=== PATIENT | male | born 1950 | race Caucasian/White ===

== ENCOUNTER → 2018-07-27 12:27 | Outpatient (CLI) | payer MEDICARE, OTHER, SELFPAY ==
--- NOTE | 2018-07-27 12:35 | DI.RAD.S_ITS ---
PROCEDURE: XR TIBIA FIBULA RT 2V INDICATIONS: leg pain TECHNIQUE: 2 views of the tibia and fibula were acquired. COMPARISON: None. FINDINGS: Bones: No fractures or dislocations. No suspicious bony lesions. Mild spurring of the right knee joint Soft tissues: No suspicious soft tissue calcifications or masses. IMPRESSION: Negative exam as above. If the patient's pain or other symptoms persist, consider further evaluation with MRI Dictated by: Stanley Wolff M.D. on 07/27/2018 at 13:15 Approved by: Stanley Wolff M.D. on 07/27/2018 at 13:29
== END ==
PROVIDERS: Visit Provider Physician Assistant
DX: M79.662 Pain in left lower leg (principal)
CPT/HCPCS: 73590

== ENCOUNTER 2020-05-14 14:56 | Observation (INO) | payer MEDICARE, OTHER, SELFPAY ==
[2020-05-14 15:00] VITALS: BP 176/101; PULSE 104; RESP 16; TEMP 36.3; O2SAT 97; BMI 29.7
--- NOTE | 2020-05-14 15:23 | DI.RAD.S_ITS ---
PROCEDURE: XR CHEST 1V INDICATIONS: chest pain TECHNIQUE: One view of the chest was acquired. COMPARISON: None. FINDINGS: Surgical changes and devices: Surgical clips are noted in right axilla.. Lungs and pleura: Lungs are clear. No pleural effusions or pneumothorax. Mediastinum: Mildly tortuous thoracic aorta is seen. Heart size is borderline enlarged. Bones and chest wall: No suspicious bony lesions. Overlying soft tissues appear unremarkable. IMPRESSION: No acute cardiopulmonary pathology. Dictated by: Tu Guidry M.D. on 05/14/2020 at 15:05 Approved by: Tu Guidry M.D. on 05/14/2020 at 15:10
[2020-05-14 16:04] LABS: Add Manual Diff / Slide Review NO; Basophils Absolute Auto 0 /uL (0-100); Basophils Percent Auto 0.5 % (0-2); Eosinophils Absolute Auto 0 /uL (0-450); Eosinophils Percent Auto 0.5 % (2-4); Hematocrit 39.1 % (41-53); Hemoglobin 12.8 g/dL (13.5-17.5); Lymphocytes Absolute Auto 1800 /uL (1100-4500); Lymphocytes Percent Auto 25.5 % (25-40); Mean Corpuscular HGB Conc 32.8 % (30-36); Mean Corpuscular Hemoglobin 29.8 PG (26-34); Mean Corpuscular Volume 90.9 fL (80-100); Monocytes Absolute Auto 300 /uL (0-900); Monocytes Percent Auto 4.4 % (3-14); Neutrophils Absolute Auto 4800 /uL (1500-7000); Neutrophils Percent Auto 69.1 % (50-75); Platelet Count 229 X10^3/uL (150-400); Red Cell Distribution Width 14.2 % (11.6-14.8)
[2020-05-14 16:05] VITALS: BP 176/101; PULSE 79; RESP 16; O2SAT 100
[2020-05-14 16:18] LABS: INR 0.9 (0.9-1.3); Prothrombin Time 10.7 SECONDS (10.1-12.7)
[2020-05-14 16:21] LABS: PTT Partial Thromboplastin Tim 30 SECONDS (26.4-36.2)
[2020-05-14 16:24] LABS: Alanine Aminotransferase 23 IU/L (<50); Albumin 4.2 g/dL (3.5-5.0); Albumin Globulin Ratio 1.6 (1.0-2.8); Alkaline Phosphatase 83 U/L (38-126); Aspartate Aminotransferase 25 IU/L (17-59); BUN Creatinine Ratio 27.3 (6-22); Bilirubin Total 0.2 mg/dL (0.2-1.3); Blood Urea Nitrogen 27 mg/dL (9-20); Calcium 9.1 mg/dL (8.4-10.2); Carbon Dioxide 25 mmol/L (22-32); Chloride 104 mmol/L (98-107); Creatine Kinase 70 U/L (55-170); Estimated Glomerular Filt Rate > 60.0 mL/min (>60); Globulin 2.6 g/dL (1.7-4.1); Glucose 141 mg/dL (80-110); HEMOLYSIS < 15 (0-50); Lipase 90 U/L (23-300); Potassium 4.4 mmol/L (3.4-5.1); Sodium 135 mmol/L (137-145); Total Protein 6.8 g/dL (6.3-8.2)
[2020-05-14 16:35] LABS: Troponin I < 0.012 ng/mL (0.01-0.034)
[2020-05-14 17:14] LABS: D Dimer < 200 ng/mL (<230)
--- NOTE | 2020-05-14 17:15 | ED_ITS ---
HPI - Chest Pain <ROSA Sorensen-BC - Last Filed: 05/14/20 19:37> General Chief Complaint: Chest Pain Stated Complaint: SOB PAIN LEFT ARM Time Seen by Provider: 05/14/20 16:58 Source: patient Mode of arrival: Ambulatory Limitations: no limitations History of Present Illness HPI narrative: The patient is a 69-year-old female nonsmoker who denies pertinent medical history presents with a chief complaint of chest pain that started a substernal this morning at 10:30 a.m.. Radiated to her back and down her left arm. She has never felt this way before. She denies any cardiac history, though notes that she was told she had high blood pressure when going to a walk-in clinic for urinary tract infection treatment fairly recently. She denies any family history of cardiac disease. She complains of associated lightheadedness and dizziness, associated nausea during her episode of chest pain with no vomiting. She states that her episode of chest pain lasted 3 hours or so. She denies any fevers. She denies any known exposure to coronavirus patients. Related Data Previous Rx's Medication Instructions Recorded atorvastatin 20 mg PO BEDTIME 30 Days #30 tab 05/15/20 hydrochlorothiazide 25 mg PO DAILY 30 Days #30 tab 05/15/20 lisinopril 20 mg PO DAILY 30 Days #30 tab 05/15/20 Allergies Allergy/AdvReac Type Severity Reaction Status Date / Time No Known Drug Allergies Allergy Verified 07/27/18 12:05 Review of Systems <ROSA Sorensen- - Last Filed: 05/14/20 19:37> Review of Systems Narrative: GENERAL: Denies chills, fatigue, malaise, fever, sweats. HEENT: Denies sinus pain, ear pain, sore throat, difficulty swallowing, dizziness. RESPIRATORY: See HPI CARDIOVASCULAR: See HPI GASTROINTESTINAL: Denies nausea, vomiting, abdominal pain, diarrhea, constipation, melena. : Denies dysuria, frequency, incontinence, hematuria, urinary retention. MUSCULOSKELETAL: denies weakness, joint pain, or bony pain SKIN: Denies rash, skin lesions, or other NEUROLOGIC: Denies weakness, headache, numbness, change in speech, confusion, seizures, incoordination. PSYCHIATRIC: No concerning psychosocial issues. 12 point review of systems is negative except for those stated above Patient History <ROSA Sorensen-BC - Last Filed: 05/14/20 19:37> Medical History (Updated 05/14/20 @ 21:34 by LOR Toscano) History of chemotherapy Stage III breast cancer in female Surgical History (Updated 05/14/20 @ 21:34 by LOR Toscano) History of appendectomy History of hysterectomy History of lumbosacral spine surgery History of mastectomy History of tonsillectomy History of vascular access device Family History (Updated 05/14/20 @ 21:36 by LOR Toscaon) Father Congestive heart failure Mother Cancer Brother Myocardial infarction Social History household members: spouse Smoking Status: Never smoker alcohol intake: current Smoking Status: Never smoker Exam <CHAVEZ Sorensen - Last Filed: 05/14/20 19:37> Narrative Exam Narrative: GENERAL: This is a well-nourished, well-developed patient, in no acute distress HEAD: Atraumatic. Normocephalic. No temporal or scalp tenderness. EYES: Pupils equal round and reactive. Extraocular motions intact. No scleral icterus. No injection or drainage. ENT: Nose without bleeding, purulent drainage or septal hematoma. Wearing a mass e. Airway patent. NECK: Trachea midline. No JVD or lymphadenopathy. Supple, nontender, no meningeal signs. CARDIOVASCULAR: Regular rate and rhythm RESPIRATORY: Clear to auscultation. Breath sounds equal bilaterally. No wheezes, rales, or rhonchi. No cough. No increased respiratory effort. No accessory muscle use. GASTROINTESTINAL: Abdomen soft, non-tender, nondistended. No hepato- splenomegaly, or palpable masses. No guarding. Active bowel sounds all 4 quadrants. EXTREMITIES: No clubbing, cyanosis, or edema. No joint tenderness, effusion, or edema noted. BACK: Nontender without deformity or crepitance. No flank tenderness. NEURO: AOx3. SKIN: No rash or erythema on visible skin Initial Vital Signs Initial Vital Signs: Vital Signs Temperature 97.4 F L 05/14/20 15:00 Pulse Rate 104 H 05/14/20 15:00 Respiratory Rate 16 05/14/20 15:00 Blood Pressure 176/101 H 05/14/20 15:00 Pulse Oximetry 97 05/14/20 15:00 <Cat Matthews DO - Last Filed: 05/17/20 10:09> Initial Vital Signs Initial Vital Signs: Vital Signs Temperature 97.4 F L 05/14/20 15:00 Pulse Rate 104 H 05/14/20 15:00 Respiratory Rate 16 05/14/20 15:00 Blood Pressure 176/101 H 05/14/20 15:00 Pulse Oximetry 97 05/14/20 15:00 Scores <CHAVEZ Sorensen - Last Filed: 05/14/20 19:37> GCS [place] coma scale eye opening: Spontaneous [place] coma scale verbal response: Orientated [place] coma scale motor response: Obey commands [place] coma scale total score: 15 HEART Score Heart Score history: Highly Suspicious Heart Score EKG: Non-Specific repolarization disturbance Heart Score Age: > or = 65 years old Heart Score risk factors: 1-2 risk factors Heart Score troponin: < or = to normal limit Heart Score Total: 6 Course <CHAVEZ Sorensen - Last Filed: 05/14/20 19:37> Orders Ordered: Discontinued Medications Acetaminophen (Acetaminophen 325 Mg Tablet) 650 mg PO Q4HR PRN PRN Reason: Fever/Mild Pain (1-3) Last Admin: 05/15/20 16:20 Dose: 650 mg Documented by: FRANCI Al Hydrox/Mg Hydrox/Simethicone (Mag Hydrox/Alum/Simeth 30 Ml Udc) 30 ml PO Q6HR PRN PRN Reason: Dyspepsia Amlodipine Besylate (Amlodipine 5 Mg Tablet) 5 mg PO NOW ONE Stop: 05/15/20 09:15 Last Admin: 05/15/20 09:21 Dose: 5 mg Documented by: ROBERT Aspirin (Aspirin Ec 81 Mg Tablet) 81 mg PO DAILY [facility] Last Admin: 05/15/20 09:21 Dose: 81 mg Documented by: ROBERT Bisacodyl (Bisacodyl 10 Mg Supp) 10 mg RI DAILY PRN PRN Reason: Constipation Calcium Carbonate (Calcium Carbonate 500 Mg Tab) 1,000 mg PO Q4HR PRN PRN Reason: Dyspepsia Enalapril Maleate (Enalapril 5 Mg Tablet) 5 mg PO NOW ONE Stop: 05/15/20 10:45 Last Admin: 05/15/20 11:15 Dose: 5 mg Documented by: ROBERT Furosemide (Furosemide 20 Mg/2 Ml Vial) 20 mg IV NOW ONE Stop: 05/15/20 14:54 Last Admin: 05/15/20 14:56 Dose: 20 mg Documented by: ROBERT Heparin Sodium (Porcine) (Heparin 5,000 Unit/Ml Vial) 5,000 unit SUBCUT BID [facility] Last Admin: 05/15/20 09:21 Dose: 5,000 unit Documented by: Admin: 05/14/20 21:31 Dose: 5,000 unit Documented by: ESTELLA Sodium Chloride (Normal Saline 0.9%) 1,000 mls @ 75 mls/hr IV CONT [facility] Last Infusion: 05/15/20 14:41 Dose: 75 mls/hr Documented by: Admin: 05/14/20 21:31 Dose: 75 mls/hr Documented by: ESTELLA Influenza Virus Vaccine (Influenza Hd Vaccine 0.7 Ml Syringe) 0.7 ml IM .ONCE ONE Stop: 05/14/20 21:08 Last Admin: 05/15/20 14:38 Dose: Not Given Documented by: ROBERT Influenza Virus Vaccine (Influenza Hd Vaccine 0.7 Ml Syringe) 0.7 ml IM .ONCE ONE Stop: 05/15/20 14:40 Last Admin: 05/15/20 14:45 Dose: 0.7 ml Documented by: ROBERT Magnesium Hydroxide (Magnesium Hydroxide 30 Ml Udc) 30 ml PO DAILY PRN PRN Reason: Constipation Morphine Sulfate (Morphine 2 Mg/Ml Inj) 2 mg IV Q5MIN PRN PRN Reason: Chest Pain Naloxone HCl (Naloxone 0.4 Mg/Ml Vial) 0.2 mg IV Q2MIN PRN PRN Reason: Opiate Reversal Nitroglycerin (Nitroglycerin 0.4 Mg Sl Tab) 0.4 mg SL [id number] PRN PRN Reason: Chest Pain Ondansetron HCl (Ondansetron 4 Mg/2 Ml Inj) 4 mg IV Q8HR PRN PRN Reason: Nausea And Vomiting Vital Signs Vital signs: Vital Signs - 8 hr 05/14/20 15:00 05/14/20 16:05 05/14/20 17:34 Temperature 97.4 F L Pulse Rate 104 H 79 84 Respiratory Rate 16 16 22 Blood Pressure 176/101 H 176/101 H 141/75 H Pulse Oximetry 97 100 100 05/14/20 18:30 Temperature Pulse Rate 81 Respiratory Rate 16 Blood Pressure 170/84 H Pulse Oximetry 96 <Cat Matthews, - Last Filed: 05/17/20 10:09> Orders Ordered: Discontinued Medications Acetaminophen (Acetaminophen 325 Mg Tablet) 650 mg PO Q4HR PRN PRN Reason: Fever/Mild Pain (1-3) Last Admin: 05/15/20 16:20 Dose: 650 mg Documented by: FRANCI Al Hydrox/Mg Hydrox/Simethicone (Mag Hydrox/Alum/Simeth 30 Ml Udc) 30 ml PO Q6HR PRN PRN Reason: Dyspepsia Amlodipine Besylate (Amlodipine 5 Mg Tablet) 5 mg PO NOW ONE Stop: 05/15/20 09:15 Last Admin: 05/15/20 09:21 Dose: 5 mg Documented by: ROBERT Aspirin (Aspirin Ec 81 Mg Tablet) 81 mg PO DAILY [facility] Last Admin: 05/15/20 09:21 Dose: 81 mg Documented by: ROBERT Bisacodyl (Bisacodyl 10 Mg Supp) 10 mg RI DAILY PRN PRN Reason: Constipation Calcium Carbonate (Calcium Carbonate 500 Mg Tab) 1,000 mg PO Q4HR PRN PRN Reason: Dyspepsia Enalapril Maleate (Enalapril 5 Mg Tablet) 5 mg PO NOW ONE Stop: 05/15/20 10:45 Last Admin: 05/15/20 11:15 Dose: 5 mg Documented by: ROBERT Furosemide (Furosemide 20 Mg/2 Ml Vial) 20 mg IV NOW ONE Stop: 05/15/20 14:54 Last Admin: 05/15/20 14:56 Dose: 20 mg Documented by: ROBERT Heparin Sodium (Porcine) (Heparin 5,000 Unit/Ml Vial) 5,000 unit SUBCUT BID [facility] Last Admin: 05/15/20 09:21 Dose: 5,000 unit Documented by: Admin: 05/14/20 21:31 Dose: 5,000 unit Documented by: ESTELLA Sodium Chloride (Normal Saline 0.9%) 1,000 mls @ 75 mls/hr IV CONT [facility] Last Infusion: 05/15/20 14:41 Dose: 75 mls/hr Documented by: Admin: 05/14/20 21:31 Dose: 75 mls/hr Documented by: ESTELLA Influenza Virus Vaccine (Influenza Hd Vaccine 0.7 Ml Syringe) 0.7 ml IM .ONCE ONE Stop: 05/14/20 21:08 Last Admin: 05/15/20 14:38 Dose: Not Given Documented by: ROBERT Influenza Virus Vaccine (Influenza Hd Vaccine 0.7 Ml Syringe) 0.7 ml IM .ONCE ONE Stop: 05/15/20 14:40 Last Admin: 05/15/20 14:45 Dose: 0.7 ml Documented by: ROBERT Magnesium Hydroxide (Magnesium Hydroxide 30 Ml Udc) 30 ml PO DAILY PRN PRN Reason: Constipation Morphine Sulfate (Morphine 2 Mg/Ml Inj) 2 mg IV Q5MIN PRN PRN Reason: Chest Pain Naloxone HCl (Naloxone 0.4 Mg/Ml Vial) 0.2 mg IV Q2MIN PRN PRN Reason: Opiate Reversal Nitroglycerin (Nitroglycerin 0.4 Mg Sl Tab) 0.4 mg SL [id number] PRN PRN Reason: Chest Pain Ondansetron HCl (Ondansetron 4 Mg/2 Ml Inj) 4 mg IV Q8HR PRN PRN Reason: Nausea And Vomiting Vital Signs Vital signs: Vital Signs - 8 hr 05/14/20 15:00 05/14/20 16:05 05/14/20 17:34 Temperature 97.4 F L Pulse Rate 104 H 79 84 Respiratory Rate 16 16 22 Blood Pressure 176/101 H 176/101 H 141/75 H Pulse Oximetry 97 100 100 05/14/20 18:30 Temperature Pulse Rate 81 Respiratory Rate 16 Blood Pressure 170/84 H Pulse Oximetry 96 MDM - Chest Pain <ROSA Sorensen- - Last Filed: 05/14/20 19:37> Lab Data Attestation: I reviewed the patient's lab results. Result diagrams: 05/15/20 06:55 05/15/20 06:55 Labs: Lab Results 05/14/20 05/14/20 05/14/20 Range/Units 15:56 15:56 15:56 WBC 7.0 (4.5-11.0) X10^3/uL RBC 4.30 L (4.5-5.9) X10^6/uL Hgb 12.8 L (13.5-17.5) g/dL Hct 39.1 L (41-53) % MCV 90.9 (80-100) fL MCH 29.8 (26-34) PG MCHC 32.8 (30-36) % RDW 14.2 (11.6-14.8) % Plt Count 229 (150-400) X10^3/uL Neut % (Auto) 69.1 (50-75) % Lymph % (Auto) 25.5 (25-40) % Bureau % (Auto) 4.4 (3-14) % Eos % (Auto) 0.5 L (2-4) % Baso % (Auto) 0.5 (0-2) % Neut # (Auto) 4800 (2544-7066) /uL Lymph # (Auto) 1800 (8823-4215) /uL Bureau # (Auto) 300 (0-900) /uL Eos # (Auto) 0 (0-450) /uL Baso # (Auto) 0 (0-100) /uL PT 10.7 (10.1-12.7) SECONDS INR 0.9 (0.9-1.3) APTT 30 (26.4-36.2) SECONDS D-Dimer (<230) ng/mL Sodium 135 L (137-145) mmol/L Potassium 4.4 (3.4-5.1) mmol/L Chloride 104 (98-107) mmol/L Carbon Dioxide 25 (22-32) mmol/L BUN 27 H (9-20) mg/dL Creatinine 0.99 (0.66-1.25) mg/dL Estimated GFR > 60.0 (>60) mL/min BUN/Creatinine Ratio 27.3 H (6-22) Glucose 141 H (80-110) mg/dL Calcium 9.1 (8.4-10.2) mg/dL Total Bilirubin 0.2 (0.2-1.3) mg/dL AST 25 (17-59) IU/L ALT 23 (<50) IU/L Alkaline Phosphatase 83 (38-126) U/L Total Creatine Kinase 70 (55-170) U/L CK-MB (CK-2) TNP CK-MB (CK-2) Rel Index TNP Troponin I < 0.012 (0.01-0.034) ng/mL NT-Pro-B Natriuret Pep (<125) pg/mL Total Protein 6.8 (6.3-8.2) g/dL Albumin 4.2 (3.5-5.0) g/dL Globulin 2.6 (1.7-4.1) g/dL Albumin/Globulin Ratio 1.6 (1.0-2.8) Lipase 90 (23-300) U/L Urine RBC (0-5/HPF) Urine WBC (0-5/HPF) Urine Bacteria (None) Ur Culture Indicated? Micro UA Comment COVID-19 PCR (Negative) 05/14/20 05/14/20 05/14/20 Range/Units 15:56 15:56 17:23 WBC (4.5-11.0) X10^3/uL RBC (4.5-5.9) X10^6/uL Hgb (13.5-17.5) g/dL Hct (41-53) % MCV (80-100) fL MCH (26-34) PG MCHC (30-36) % RDW (11.6-14.8) % Plt Count (150-400) X10^3/uL Neut % (Auto) (50-75) % Lymph % (Auto) (25-40) % Bureau % (Auto) (3-14) % Eos % (Auto) (2-4) % Baso % (Auto) (0-2) % Neut # (Auto) (3551-7907) /uL Lymph # (Auto) (6438-4861) /uL Bureau # (Auto) (0-900) /uL Eos # (Auto) (0-450) /uL Baso # (Auto) (0-100) /uL PT (10.1-12.7) SECONDS INR (0.9-1.3) APTT (26.4-36.2) SECONDS D-Dimer < 200 (<230) ng/mL Sodium (137-145) mmol/L Potassium (3.4-5.1) mmol/L Chloride (98-107) mmol/L Carbon Dioxide (22-32) mmol/L BUN (9-20) mg/dL Creatinine (0.66-1.25) mg/dL Estimated GFR (>60) mL/min BUN/Creatinine Ratio (6-22) Glucose (80-110) mg/dL Calcium (8.4-10.2) mg/dL Total Bilirubin (0.2-1.3) mg/dL AST (17-59) IU/L ALT (<50) IU/L Alkaline Phosphatase (38-126) U/L Total Creatine Kinase (55-170) U/L CK-MB (CK-2) CK-MB (CK-2) Rel Index Troponin I (0.01-0.034) ng/mL NT-Pro-B Natriuret Pep 109 (<125) pg/mL Total Protein (6.3-8.2) g/dL Albumin (3.5-5.0) g/dL Globulin (1.7-4.1) g/dL Albumin/Globulin Ratio (1.0-2.8) Lipase (23-300) U/L Urine RBC None seen (0-5/HPF) Urine WBC None seen (0-5/HPF) Urine Bacteria None seen (None) Ur Culture Indicated? Cult not indicated Micro UA Comment Microscopic normal COVID-19 PCR (Negative) 05/14/20 05/14/20 Range/Units 17:55 18:33 WBC (4.5-11.0) X10^3/uL RBC (4.5-5.9) X10^6/uL Hgb (13.5-17.5) g/dL Hct (41-53) % MCV (80-100) fL MCH (26-34) PG MCHC (30-36) % RDW (11.6-14.8) % Plt Count (150-400) X10^3/uL Neut % (Auto) (50-75) % Lymph % (Auto) (25-40) % Bureau % (Auto) (3-14) % Eos % (Auto) (2-4) % Baso % (Auto) (0-2) % Neut # (Auto) (5190-9257) /uL Lymph # (Auto) (6357-2193) /uL Bureau # (Auto) (0-900) /uL Eos # (Auto) (0-450) /uL Baso # (Auto) (0-100) /uL PT (10.1-12.7) SECONDS INR (0.9-1.3) APTT (26.4-36.2) SECONDS D-Dimer (<230) ng/mL Sodium (137-145) mmol/L Potassium (3.4-5.1) mmol/L Chloride (98-107) mmol/L Carbon Dioxide (22-32) mmol/L BUN (9-20) mg/dL Creatinine (0.66-1.25) mg/dL Estimated GFR (>60) mL/min BUN/Creatinine Ratio (6-22) Glucose (80-110) mg/dL Calcium (8.4-10.2) mg/dL Total Bilirubin (0.2-1.3) mg/dL AST (17-59) IU/L ALT (<50) IU/L Alkaline Phosphatase (38-126) U/L Total Creatine Kinase 69 (55-170) U/L CK-MB (CK-2) TNP CK-MB (CK-2) Rel Index TNP Troponin I < 0.012 (0.01-0.034) ng/mL NT-Pro-B Natriuret Pep (<125) pg/mL Total Protein (6.3-8.2) g/dL Albumin (3.5-5.0) g/dL Globulin (1.7-4.1) g/dL Albumin/Globulin Ratio (1.0-2.8) Lipase (23-300) U/L Urine RBC (0-5/HPF) Urine WBC (0-5/HPF) Urine Bacteria (None) Ur Culture Indicated? Micro UA Comment COVID-19 PCR Negative (Negative) Urine Dip Bedside Urine Glucose Negative Bedside Urine Bilirubin - Negative Bedside Urine Ketone - Negative Urine Specific [place] 1.025 Bedside Urine Occult Blood +/- Bedside Urine pH 6.0 Bedside Urine Protein - Negative Bedside Urine Urobilinogen - Negative Bedside Urine Nitrite - Negative Bedside Urine Leukocytes - Negative Esterase Imaging Data Chest x-ray: Radiologist's Impression: [address] [place] [id number] ReportSigned Patient: Cindy Turpin [facility]#: [id number]: 9Acct:[id number]/Sex: 69 / MDate of Service: 05/14/20Loc: EDAccession Number: [id number] Procedure: XR chest 1V Ordering Provider: Cat Matthews D.O. PROCEDURE: XR CHEST 1V INDICATIONS: chest pain TECHNIQUE: One view of the chest was acquired. COMPARISON: None. FINDINGS: Surgical changes and devices: Surgical clips are noted in right axilla.. Lungs and pleura: Lungs are clear. No pleural effusions or pneumothorax. Mediastinum: Mildly tortuous thoracic aorta is seen. Heart size is borderline enlarged. Bones and chest wall: No suspicious bony lesions. Overlying soft tissues appear unremarkable. IMPRESSION: No acute cardiopulmonary pathology. Dictated by: Tu Guidry M.D. on 05/14/2020 at 15:05 Approved by: Tu Guidry M.D. on 05/14/2020 at 15:10 ECG Data Attestation: I personally reviewed and interpreted this ECG as follows: Interpretation: Sinus with PAC. Ventricular rate 99. P.r. interval 174. QRS 98. q waves noted. viewed by Dr Cassie WILSON Narrative Medical decision making narrative: The patient is a 69-year-old female who presents with a chief complaint of a several hour episode of substernal chest pain to range her back down her left arm this morning. She does not have a primary care provider in the area. Her initial troponin is negative, D-dimer is negative, BNP within normal limits. Her chest x-ray has no acute findings.. Her current heart score is 7. I spoke with Dr Rene who kindly agreed to accept the patient if her 2nd troponin results negative. I spoke with the patient who is on board with this plan. Her coronavirus results negative. The patient's repeat troponin at 18:30. The patient is the flipped to observation accordingly. The patient appears well and nontoxic throughout her stay in the ER. <Cat Matthews, - Last Filed: 05/17/20 10:09> Lab Data Labs: Lab Results 05/14/20 05/14/20 05/14/20 Range/Units 15:56 15:56 15:56 WBC 7.0 (4.5-11.0) X10^3/uL RBC 4.30 L (4.5-5.9) X10^6/uL Hgb 12.8 L (13.5-17.5) g/dL Hct 39.1 L (41-53) % MCV 90.9 (80-100) fL MCH 29.8 (26-34) PG MCHC 32.8 (30-36) % RDW 14.2 (11.6-14.8) % Plt Count 229 (150-400) X10^3/uL Neut % (Auto) 69.1 (50-75) % Lymph % (Auto) 25.5 (25-40) % Bureau % (Auto) 4.4 (3-14) % Eos % (Auto) 0.5 L (2-4) % Baso % (Auto) 0.5 (0-2) % Neut # (Auto) 4800 (2807-7932) /uL Lymph # (Auto) 1800 (7994-2354) /uL Bureau # (Auto) 300 (0-900) /uL Eos # (Auto) 0 (0-450) /uL Baso # (Auto) 0 (0-100) /uL PT 10.7 (10.1-12.7) SECONDS INR 0.9 (0.9-1.3) APTT 30 (26.4-36.2) SECONDS D-Dimer (<230) ng/mL Sodium 135 L (137-145) mmol/L Potassium 4.4 (3.4-5.1) mmol/L Chloride 104 (98-107) mmol/L Carbon Dioxide 25 (22-32) mmol/L BUN 27 H (9-20) mg/dL Creatinine 0.99 (0.66-1.25) mg/dL Estimated GFR > 60.0 (>60) mL/min BUN/Creatinine Ratio 27.3 H (6-22) Glucose 141 H (80-110) mg/dL Calcium 9.1 (8.4-10.2) mg/dL Total Bilirubin 0.2 (0.2-1.3) mg/dL AST 25 (17-59) IU/L ALT 23 (<50) IU/L Alkaline Phosphatase 83 (38-126) U/L Total Creatine Kinase 70 (55-170) U/L CK-MB (CK-2) TNP CK-MB (CK-2) Rel Index TNP Troponin I < 0.012 (0.01-0.034) ng/mL NT-Pro-B Natriuret Pep (<125) pg/mL Total Protein 6.8 (6.3-8.2) g/dL Albumin 4.2 (3.5-5.0) g/dL Globulin 2.6 (1.7-4.1) g/dL Albumin/Globulin Ratio 1.6 (1.0-2.8) Lipase 90 (23-300) U/L Urine RBC (0-5/HPF) Urine WBC (0-5/HPF) Urine Bacteria (None) Ur Culture Indicated? Micro UA Comment COVID-19 PCR (Negative) 05/14/20 05/14/20 05/14/20 Range/Units 15:56 15:56 17:23 WBC (4.5-11.0) X10^3/uL RBC (4.5-5.9) X10^6/uL Hgb (13.5-17.5) g/dL Hct (41-53) % MCV (80-100) fL MCH (26-34) PG MCHC (30-36) % RDW (11.6-14.8) % Plt Count (150-400) X10^3/uL Neut % (Auto) (50-75) % Lymph % (Auto) (25-40) % Bureau % (Auto) (3-14) % Eos % (Auto) (2-4) % Baso % (Auto) (0-2) % Neut # (Auto) (3376-4696) /uL Lymph # (Auto) (1889-6838) /uL Bureau # (Auto) (0-900) /uL Eos # (Auto) (0-450) /uL Baso # (Auto) (0-100) /uL PT (10.1-12.7) SECONDS INR (0.9-1.3) APTT (26.4-36.2) SECONDS D-Dimer < 200 (<230) ng/mL Sodium (137-145) mmol/L Potassium (3.4-5.1) mmol/L Chloride (98-107) mmol/L Carbon Dioxide (22-32) mmol/L BUN (9-20) mg/dL Creatinine (0.66-1.25) mg/dL Estimated GFR (>60) mL/min BUN/Creatinine Ratio (6-22) Glucose (80-110) mg/dL Calcium (8.4-10.2) mg/dL Total Bilirubin (0.2-1.3) mg/dL AST (17-59) IU/L ALT (<50) IU/L Alkaline Phosphatase (38-126) U/L Total Creatine Kinase (55-170) U/L CK-MB (CK-2) CK-MB (CK-2) Rel Index Troponin I (0.01-0.034) ng/mL NT-Pro-B Natriuret Pep 109 (<125) pg/mL Total Protein (6.3-8.2) g/dL Albumin (3.5-5.0) g/dL Globulin (1.7-4.1) g/dL Albumin/Globulin Ratio (1.0-2.8) Lipase (23-300) U/L Urine RBC None seen (0-5/HPF) Urine WBC None seen (0-5/HPF) Urine Bacteria None seen (None) Ur Culture Indicated? Cult not indicated Micro UA Comment Microscopic normal COVID-19 PCR (Negative) 05/14/20 05/14/20 Range/Units 17:55 18:33 WBC (4.5-11.0) X10^3/uL RBC (4.5-5.9) X10^6/uL Hgb (13.5-17.5) g/dL Hct (41-53) % MCV (80-100) fL MCH (26-34) PG MCHC (30-36) % RDW (11.6-14.8) % Plt Count (150-400) X10^3/uL Neut % (Auto) (50-75) % Lymph % (Auto) (25-40) % Bureau % (Auto) (3-14) % Eos % (Auto) (2-4) % Baso % (Auto) (0-2) % Neut # (Auto) (2769-2512) /uL Lymph # (Auto) (1664-1222) /uL Bureau # (Auto) (0-900) /uL Eos # (Auto) (0-450) /uL Baso # (Auto) (0-100) /uL PT (10.1-12.7) SECONDS INR (0.9-1.3) APTT (26.4-36.2) SECONDS D-Dimer (<230) ng/mL Sodium (137-145) mmol/L Potassium (3.4-5.1) mmol/L Chloride (98-107) mmol/L Carbon Dioxide (22-32) mmol/L BUN (9-20) mg/dL Creatinine (0.66-1.25) mg/dL Estimated GFR (>60) mL/min BUN/Creatinine Ratio (6-22) Glucose (80-110) mg/dL Calcium (8.4-10.2) mg/dL Total Bilirubin (0.2-1.3) mg/dL AST (17-59) IU/L ALT (<50) IU/L Alkaline Phosphatase (38-126) U/L Total Creatine Kinase 69 (55-170) U/L CK-MB (CK-2) TNP CK-MB (CK-2) Rel Index TNP Troponin I < 0.012 (0.01-0.034) ng/mL NT-Pro-B Natriuret Pep (<125) pg/mL Total Protein (6.3-8.2) g/dL Albumin (3.5-5.0) g/dL Globulin (1.7-4.1) g/dL Albumin/Globulin Ratio (1.0-2.8) Lipase (23-300) U/L Urine RBC (0-5/HPF) Urine WBC (0-5/HPF) Urine Bacteria (None) Ur Culture Indicated? Micro UA Comment COVID-19 PCR Negative (Negative) Urine Dip Bedside Urine Glucose Negative Bedside Urine Bilirubin - Negative Bedside Urine Ketone - Negative Urine Specific [place] 1.025 Bedside Urine Occult Blood +/- Bedside Urine pH 6.0 Bedside Urine Protein - Negative Bedside Urine Urobilinogen - Negative Bedside Urine Nitrite - Negative Bedside Urine Leukocytes - Negative Esterase Discharge Plan Departure Patient Disposition: Admitted as Observation Clinical Impression: Chest pain Qualifiers: Chest pain type: unspecified Qualified Code(s): R07.9 - Chest pain, unspecified Admit Date/Time: 05/14/20 19:12 Admit Provider: Justin Rene <Cat Matthews DO - Last Filed: 05/17/20 10:09> Cosign ED Attending Cosignature Attestation: I was immediately available in the department for consultation. This documentation has been reviewed and I agree with assessment and plan, EKG reviewed by myself and case discussed with myself. Patient would benefit from further workup/observation. Supervised by Cat Matthews DO
[2020-05-14 17:23] LABS: NT-proBNP (BNP-Adult 18+) 109 pg/mL (<125)
[2020-05-14 17:33] LABS: Bacteria Urine None Seen; RBC Urine None Seen (0-5/HPF); WBC Urine None Seen (0-5/HPF)
[2020-05-14 17:34] VITALS: BP 141/75; PULSE 84; RESP 22; O2SAT 100
[2020-05-14 17:46] LABS: Culture Indicated Urine Cult Not Indicated; Urine Comments Microscopic Normal
[2020-05-14 18:27] LABS: COVID19 -Nasal RAPID Negative (Negative)
[2020-05-14 18:30] VITALS: BP 170/84; PULSE 81; RESP 16; O2SAT 96
[2020-05-14 18:52] LABS: Creatine Kinase 69 U/L (30-135)
[2020-05-14 19:04] LABS: Troponin I < 0.012 ng/mL (0.01-0.034)
[2020-05-14 19:58] VITALS: BP 125/72; PULSE 81; RESP 20; O2SAT 96
[2020-05-14 20:36] VITALS: BMI 29.7
--- NOTE | 2020-05-14 21:14 | PM.HP.1 ---
History of Present Illness History of Present Illness Date Patient Seen: 05/14/20 Time Patient Seen: 19:55 Chief complaint: SOB PAIN LEFT ARM Narrative: Ms. Cindy Turpin is a 69-year-old female a past medical history significant for stage III breast cancer status post mastectomy reconstruction chemotherapy and hypertension who presents to the ER with chest pain. Patient reports she onset of chest pain described as substernal at 10:30 a.m. while paining Karina ornaments and lasted for approximately 3 hours. The pain started rest, was nonpleuritic and radiated to her upper back and left arm. She reports she has had previous left arm pain which was nonspecific and transient and thought nothing of it. She describes associated lightheadedness and dizziness with nausea and no vomiting. She describes shakiness and felt it may been related to nerves. The patient has had no recent cold or flu symptoms, denies fevers or chills and has had no known COVID-19 exposures. Denies headache or visual changes, nasal congestion or sore throat. She has chest pain as noted above and denies palpitations. She has had mild shortness of breath during the episode feel in difficulty taking a full deep breath. She denies coughing or wheezing. She denies epigastric or abdominal pain and has had nausea without vomiting. She denies urinary symptoms and has nocturia perhaps 1 time per night. She denies diarrhea or constipation. Upon arrival to the ER the patient has a temperature 97.4?, heart rate of 104, blood pressure 176/101, respirations 16 saturating 97% on room air. Chest x-ray is obtained which finds no acute cardiopulmonary processes. Twelve lead EKG finds a sinus rhythm at a rate of 99 with PACs, no blocks, no evidence of ischemic ST or T-wave changes, inferior Q-waves in lead 2 lead 3 and AVF, minimal voltage for LVH, no EKG is available for comparison. On laboratory analysis she has a white count 7.0 without shift, hemoglobin 12.8, hematocrit of 39.1 and platelets 229. She has a PT of 10.7, INR of a 0.9 and a PTT of 30. She has a sodium 135, potassium of 4.4. Her BUN is 27 and creatinine 0.99. Her nonfasting glucose is 141. Her liver functions are all within normal limits. She has D-dimer that is less than 200, total CK is 69 and a troponin that is less than 0.012 x 2, proBNP is 109. Urinalysis is not infective and COVID screening is negative. The patient is admitted to the hospitalist service for chest pain rule out ACS. Patient History Medical History (Updated 05/14/20 @ 21:34 by LOR Toscano) History of chemotherapy Stage III breast cancer in female Surgical History (Updated 05/14/20 @ 21:34 by LOR Toscano) History of appendectomy History of hysterectomy History of lumbosacral spine surgery History of mastectomy History of tonsillectomy History of vascular access device Family & Social History Family History (Updated 05/14/20 @ 21:36 by LOR Toscano) Father Congestive heart failure Mother Cancer Brother Myocardial infarction Social History: household members spouse Prior Living Arrangements House Safety & Behavioral: Feels Safe in Current Yes Environment Been Physically Hurt or No Threatened By a Person Suicidal Ideation Description None Suicide Plan Description No Plan Tobacco & Substance use: Smoking Status Never smoker alcohol intake current alcohol intake frequency a few times a month Substance Use Type does not use Meds Home Medications and Allergies Allergies Allergy/AdvReac Type Severity Reaction Status Date / Time No Known Drug Allergies Allergy Verified 07/27/18 12:05 Review of Systems Review of Systems ROS: Yes All systems reviewed with the patient and are negative except as otherwise documented Exam Vital Signs (past 8 hours): - 05/14/20 15:00 05/14/20 16:05 05/14/20 17:34 Temperature 97.4 F L Pulse Rate 104 H 79 84 Respiratory Rate 16 16 22 Blood Pressure 176/101 H 176/101 H 141/75 H Blood Pressure [Right Arm] Pulse Oximetry 97 100 100 05/14/20 18:30 05/14/20 19:58 Temperature Pulse Rate 81 81 Respiratory Rate 16 20 Blood Pressure 170/84 H Blood Pressure [Right Arm] 125/72 Pulse Oximetry 96 96 Oxygen Delivery Method Room Air Narrative Exam Narrative: GENERAL APPEARANCE: well developed, overweight female recently conversant, in no acute distress. HEENT: Normocephalic, PERRLA, conjunctiva clear, EOMs intact without nystagmus, no sinus tenderness to percussion, no rhinorrhea, mucous membranes are dry and pink. NECK/THYROID: neck supple, no JVD, no carotid bruit, no thyromegaly, trachea midline. LYMPH NODES: no cervical or supraclavicular lymphadenopathy. SKIN: [place], warm and dry, no visible lesions, rashes, ulcerations or petechiae. HEART: regular rate and rhythm, S1-S2, 1/6 systolic murmur upper right sternal border, no rubs or gallops, brisk capillary refill, no edema LUNGS: clear to auscultation bilaterally, no coarseness crackles or wheezing, no cough present CHEST: Symmetrical movement, no accessory muscle use, good tidal volume, no pain on AP and lateral compression. ABDOMEN: Soft, no distention, no epigastric or abdominal tenderness, no guarding or peritoneal signs, no organomegaly, no flank or suprapubic tenderness, active bowel tones. BACK: Normal curvature, nontender to palpation, no CVA tenderness on percussion, no back pain with straight leg raise EXTREMITIES: moves all extremities, strength is 5/5 and symmetrical, no deformities or joint effusions. NEUROLOGIC: AAO x4, no focal neurologic deficits, cranial nerves II-XII grossly intact, sensation intact to light touch, hearing grossly normal to speech. PSYCH: Good judgment, good insight, linear thought process, cooperative, appropriate with stable behavior Objective Labs Result Diagrams: 05/14/20 15:56 05/14/20 15:56 Labs: Laboratory Results - last 24 hr 05/14/20 05/14/20 05/14/20 15:56 15:56 15:56 WBC 7.0 RBC 4.30 L Hgb 12.8 L Hct 39.1 L MCV 90.9 MCH 29.8 MCHC 32.8 RDW 14.2 Plt Count 229 Neut % (Auto) 69.1 Lymph % (Auto) 25.5 [place] % (Auto) 4.4 Eos % (Auto) 0.5 L Baso % (Auto) 0.5 Neut # (Auto) 4800 Lymph # (Auto) 1800 [place] # (Auto) 300 Eos # (Auto) 0 Baso # (Auto) 0 PT 10.7 INR 0.9 APTT 30 D-Dimer Sodium 135 L Potassium 4.4 Chloride 104 Carbon Dioxide 25 BUN 27 H Creatinine 0.99 Estimated GFR > 60.0 BUN/Creatinine Ratio 27.3 H Glucose 141 H Calcium 9.1 Total Bilirubin 0.2 AST 25 ALT 23 Alkaline Phosphatase 83 Total Creatine Kinase 70 CK-MB (CK-2) TNP CK-MB (CK-2) Rel Index TNP Troponin I < 0.012 NT-Pro-B Natriuret Pep Total Protein 6.8 Albumin 4.2 Globulin 2.6 Albumin/Globulin Ratio 1.6 Lipase 90 Urine RBC Urine WBC Urine Bacteria Ur Culture Indicated? Micro UA Comment COVID-19 PCR 05/14/20 05/14/20 05/14/20 15:56 15:56 17:23 WBC RBC Hgb Hct MCV MCH MCHC RDW Plt Count Neut % (Auto) Lymph % (Auto) [place] % (Auto) Eos % (Auto) Baso % (Auto) Neut # (Auto) Lymph # (Auto) [place] # (Auto) Eos # (Auto) Baso # (Auto) PT INR APTT D-Dimer < 200 Sodium Potassium Chloride Carbon Dioxide BUN Creatinine Estimated GFR BUN/Creatinine Ratio Glucose Calcium Total Bilirubin AST ALT Alkaline Phosphatase Total Creatine Kinase CK-MB (CK-2) CK-MB (CK-2) Rel Index Troponin I NT-Pro-B Natriuret Pep 109 Total Protein Albumin Globulin Albumin/Globulin Ratio Lipase Urine RBC None seen Urine WBC None seen Urine Bacteria None seen Ur Culture Indicated? Cult not indicated Micro UA Comment Microscopic normal COVID-19 PCR 05/14/20 05/14/20 17:55 18:33 WBC RBC Hgb Hct MCV MCH MCHC RDW Plt Count Neut % (Auto) Lymph % (Auto) [place] % (Auto) Eos % (Auto) Baso % (Auto) Neut # (Auto) Lymph # (Auto) [place] # (Auto) Eos # (Auto) Baso # (Auto) PT INR APTT D-Dimer Sodium Potassium Chloride Carbon Dioxide BUN Creatinine Estimated GFR BUN/Creatinine Ratio Glucose Calcium Total Bilirubin AST ALT Alkaline Phosphatase Total Creatine Kinase 69 CK-MB (CK-2) TNP CK-MB (CK-2) Rel Index TNP Troponin I < 0.012 NT-Pro-B Natriuret Pep Total Protein Albumin Globulin Albumin/Globulin Ratio Lipase Urine RBC Urine WBC Urine Bacteria Ur Culture Indicated? Micro UA Comment COVID-19 PCR Negative Assessment & Plan Assessment & Plan narrative: This is a 69-year-old female patient with a past medical history significant breast cancer and chemotherapy with no personal cardiac history put strong family history of cardiovascular disease who presents with chest pain substernal, onset at rest and radiating to the left shoulder and back lasting for 3 hours. 1. Acute chest pain, rule out ACS, present on admission, active -patient without personal history of chest pain but has had intermittent left arm pains for unknown reason that resolved spontaneously without evaluation. Patient is currently asymptomatic. -12 lead EKG is sinus rhythm without acute evidence of ischemic ST or T-wave changes and demonstrates a prior inferior HI with Q-waves inferiorly in lead 2 lead 3 and AVF. -ordered aspirin 81 mg daily. -ordered nitroglycerin 0.4 mg sublingual Q 5 minutes x3 as needed for chest pain. -ordered morphine 2 mg IV as needed for chest pain unresponsive to nitroglycerin. -ordered an echocardiogram for chest pain with prior history of chemotherapy and evidence of heart murmur on exam. Patient reports undergoing echocardiogram during chemotherapy in 2011. -ordered cardiac stress test in the morning for which the patient will be NPO after midnight. -will check a lipid panel in the morning as well as a hemoglobin A1c. 2. History of hypertension, chronic, stable. -patient previously took metoprolol for elevated blood pressure but is no longer. -she describes her blood pressures have elevated when she wakes in the morning and normalizes through the day. -blood pressure on arrival to the ER was 176/101 improving to 125/72 following admission to the floor without treatment. -elevated blood pressure appears circumstantial, will continue to trend. 4. History of breast cancer, stable -patient underwent mastectomy with reconstruction, treated with chemotherapy via vascular access device which has since been explanted. -no evidence of recurrence VTE prophylaxis: Enoxaparin IV fluid: Normal saline 75 cc per Diet: Heart healthy until midnight after which will be NPO Code status: Full code, the patient designates her to be surrogate decision maker. The patient is admitted to the hospital due to the severity of her symptoms requiring further monitoring and evaluation to prevent complications and adverse events. The patient is admitted as observation with expected length of stay to be less than 2 midnights. COVID-19 COVID-19 status: Negative Result date/Date tested (Pos, Neg/Pending): 05/14/20 Scores GCS [place] coma scale eye opening: Spontaneous [place] coma scale verbal response: Orientated Nette coma scale motor response: Obey commands Nette coma scale total score: 15 Quality VTE Deep Vein Thrombosis/Pulmonary Embolism Present on Admission: No
--- NOTE | 2020-05-14 21:25 | DI.ECHO.S_ITS ---
[place] +---------+ [facility] +---------+ : : [address] : : : : [id number] : : : : Phone: [phone] Echocardiogram Report + + :Name: JAMES ZAMORA Study Date: 05/15/2020 Height: 67 in : :[facility] Weight: 191 lb : : Gender: Female BSA: 2.0 m2 : :: 1950 Age: 69 yrs BP: 141/75 mmHg: :Reason For Study: CHEST PAIN, MURMUR : :Ordering Physician: LORELEI, : :DIMPLE Performed By: Elizabeth Shay : :Referring: DIMPLE MOSELEY : + + Interpretation Summary The left ventricle is normal in size. Left ventricular systolic function appears normal without focal wall motion abnormalities. The ejection fraction is estimated to be 60-65%. Diastolic parameters suggest a relaxation abnormality of the left ventricle, consistent with probable normal filling pressures. The right ventricle is borderline dilated. The right ventricular systolic function is normal. The right ventricular systolic pressure is estimated to be at least 28 mmHg based on an estimated right atrial pressure of 3 mm Hg. The left atrium is moderately dilated. Right atrial size is normal. There is mild mitral regurgitation. There is mild aortic regurgitation. There is no other significant valvular heart disease. The ascending aorta is mild-moderately enlarged. Procedure: A two-dimensional transthoracic echocardiogram with color flow and Doppler was performed. The study quality was technically adequate. There is no prior echocardiogram noted for this patient. The patient was in sinus rhythm with heart rates between 65-72 bpm during the exam. Left Ventricle: The left ventricle is normal in size. Left ventricular wall thickness is borderline increased. Left ventricular systolic function appears normal without focal wall motion abnormalities. The ejection fraction is estimated to be 60-65%. Diastolic parameters suggest a relaxation abnormality of the left ventricle, consistent with probable normal filling pressures. Right Ventricle: The right ventricle is borderline dilated. The right ventricular systolic function is normal. Atria: The left atrium is moderately dilated. Right atrial size is normal. There is no Doppler evidence for an interatrial shunt. Mitral Valve: The mitral valve is normal in structure and function. There is mild mitral regurgitation. Aortic Valve: The aortic valve is grossly normal. The aortic valve opens well. There is no aortic valve stenosis. There is mild aortic regurgitation. Tricuspid Valve: The tricuspid valve is normal in structure and function. The right ventricular systolic pressure is estimated to be at least 28 mmHg based on an estimated right atrial pressure of 3 mm Hg. There is mild tricuspid regurgitation. Pulmonic Valve: The pulmonic valve is not well visualized. There is no pulmonic valvular regurgitation. There is no other significant valvular heart disease. Great Vessels: The aortic root is normal size. The ascending aorta is mild- moderately enlarged. The IVC is of normal diameter and collapses greater than 50% with a sniff. This suggests a low right atrial pressure of 3 mm Hg. Pericardium/ Pleura There is no pericardial effusion. There is no pleural effusion. MMode/2D Measurements & Calculations LVIDd: 5.3 cm LVOT diam: 2.0 cm LVIDs: 3.3 cm Ao root diam: 3.8 cm FS: 38.2 % asc Aorta Diam: 4.1 cm EPSS: 0.87 cm Ao Arch Diam (Prox Trans): 3.6 cm IVSd: 1.1 cm LVPWd: 1.1 cm LV triplett. diameter/BSA (cm/m^2): 2.7 LV sys. diameter/BSA (cm/m^2): 1.6 LA A2 area: 26.0 cm2 RA long axis: 4.7 cm LA A4 area: 18.3 cm2 RA area: 16.9 cm2 LA length (vol): 4.6 cm RA vol: 51.3 ml LA vol: 87.5 ml RA : 25.9 ml/m2 LA vol index: 44.1 ml/m2 IVC diam: 1.6 cm RVD1 (basal): 4.1 cm TAPSE: 2.4 cm Doppler Measurements & Calculations Ao V2 max: 165.5 cm/sec LVOT Max Daniel: 121.1 cm/sec Ao V2 mean: 110.1 cm/sec LV V1 max P.9 mmHg Ao max P.0 mmHg LV V1 VTI: 27.5 cm Ao mean P.6 mmHg LEANDRA(I,D): 2.3 cm2 Ao V2 VTI: 36.9 cm LEANDRA(V,D): 2.2 cm2 sev ratio: 0.74 LEANDRA indexed to BSA (cm^2/m^2): 1.2 MV E max daniel: 50.6 cm/sec TR max daniel: 251.8 cm/sec MV A max daniel: 71.6 cm/sec TR max P.4 mmHg MV E/A: 0.71 PA V2 max: 64.1 cm/sec Med Peak E' Daniel: 4.6 cm/sec PA V2 mean: 44.1 cm/sec E/E' med: 11.0 PA mean P.89 mmHg Lat Peak E' Daniel: 4.6 cm/sec PA pr(Accel): 19.1 mmHg E/E' lat: 11.1 E/e' average: 11.0 MV dec time: 0.24 sec SV(LVOT): 84.2 ml Reading Physician:01:42 PM
[2020-05-14] MEDS: HEPARIN 5,000 UNIT/ML VIAL 5000 UNIT SUBCUT (21:31)
[2020-05-14] MEDS: SODIUM CHLORIDE 0.9% 1,000 ML 75 ML IV (21:31)
[2020-05-14 23:54] VITALS: BP 170/92; PULSE 70; RESP 16; TEMP 36.2; O2SAT 97
[2020-05-15] VITALS (9 sets, daily range): BP systolic 128–207; BP diastolic 65–111; PULSE 67–77; RESP 16–17; TEMP 35.9–36.6; O2SAT 95–98
[2020-05-15 07:31] LABS: BUN Creatinine Ratio 26.2 (6-22); Blood Urea Nitrogen 22 mg/dL (7-17); Calcium 8.8 mg/dL (8.4-10.2); Carbon Dioxide 25 mmol/L (22-32); Chloride 107 mmol/L (98-107); Cholesterol 189 mg/dL (140-199); Estimated Glomerular Filt Rate > 60.0 mL/min (>60); Glucose 103 mg/dL (80-110); HDL Cholesterol 44 mg/dL (40-60); HEMOLYSIS < 15 (0-50); LDL Cholesterol Calculated 102 mg/dL (<100); Magnesium 1.9 mg/dL (1.6-2.3); Potassium 4.3 mmol/L (3.4-5.1); Sodium 136 mmol/L (137-145); Triglycerides 213 mg/dL (35-150)
[2020-05-15 07:37] LABS: Add Manual Diff / Slide Review NO; Basophils Absolute Auto 0 /uL (0-100); Basophils Percent Auto 0.7 % (0-2); Eosinophils Absolute Auto 100 /uL (0-450); Eosinophils Percent Auto 2.3 % (2-4); Hematocrit 37.5 % (36-46); Hemoglobin 12.5 g/dL (12.0-16.0); Lymphocytes Absolute Auto 2300 /uL (1100-4500); Lymphocytes Percent Auto 41.1 % (25-40); Mean Corpuscular HGB Conc 33.2 % (30-36); Mean Corpuscular Hemoglobin 30.1 PG (26-34); Mean Corpuscular Volume 90.5 fL (80-100); Monocytes Absolute Auto 400 /uL (0-900); Monocytes Percent Auto 6.9 % (3-14); Neutrophils Absolute Auto 2800 /uL (1500-7000); Platelet Count 238 X10^3/uL (150-400); Red Blood Cell Count 4.14 X10^6/uL (4.0-5.2); Red Cell Distribution Width 14.2 % (11.6-14.8); White Blood Cell Count 5.6 X10^3/uL (4.5-11.0)
[2020-05-15 07:42] LABS: Troponin I < 0.012 ng/mL (0.01-0.034)
[2020-05-15] MEDS: HEPARIN 5,000 UNIT/ML VIAL 5000 UNIT SUBCUT (09:21)
[2020-05-15] MEDS: ASPIRIN EC 81 MG TABLET PO (09:21)
[2020-05-15] MEDS: AMLODIPINE 5 MG TABLET PO (09:21)
--- NOTE | 2020-05-15 10:27 | PC.NURSE ---
Addendum entered by Vanessa Zavaleta R.N. 05/15/20 15:10: Patient BP still elevated, 196/97, HR 70, Dr. Rene notified. Dr. Rene ordered 20mg lasix IV. Addendum entered by Vanessa Zavaleta R.N. 05/15/20 10:46: Patient BP still continues to be elevated 204/111. Dr. Rene notified. Patient denies chest pain, SOB, dizziness or nausea. Original Note: Patient having some hypertension this AM. 203/107,165/106, HR 72. Denies chest pain, SOB, dizziness, or nausea. Dr. Rene was notified about patient's pressures. An order for Amlodipine 5mg PO was given to patient. Will continue to monitor blood pressure. Tele: NS w/ BBB.
[2020-05-15] MEDS: ENALAPRIL 5 MG TABLET PO (11:15)
[2020-05-15] MEDS: INFLUENZA HD VACCINE 0.7 ML SYRINGE IM (14:45)
[2020-05-15] MEDS: FUROSEMIDE 20 MG/2 ML VIAL IV (14:56)
[2020-05-15] MEDS: ACETAMINOPHEN 325 MG TABLET 650 MG PO (16:20)
--- NOTE | 2020-05-15 16:52 | CM.DANOTE ---
DCP/Assessment: Reviewed chart. Patient is a 69yr old female admitted to [facility] with SOB. No PCP listed. Primary payor is 1)Med[employer]are 2)[employer]. Met with patient explained CM/SW role. Patient reports that she is completely I in all ADL's. Patient does not anticipate any d/c planning needs but is requesting list for PCP's in [place]. Asked BUTTER MAKER/Marley to print and provide to patient. P: Home when stable. ADALGISA Ghosh Discharge Planning/Care Management CM Discharge Assessment Start: 05/15/20 16:50 Freq: Status: Active Protocol: Document 05/15/20 16:50 KJS (Rec: 05/15/20 16:52 KJS [id number]) Discharge Planning Assessment Assigned Equipment Operat0R ADALGISA Ghosh Contact Information Jw Turpin (spouse) # [phone] Advance Directives? Yes History Provided By Patient,Medical Record Prior Living Arrangements House Household Members spouse Type of transporation used prior to Drives own vehicle admit Independent with ADL's Yes Is patient alert and oriented? Yes Caregiver for Another No Barriers to Discharge No Discharge Plan Home Transportation Arrangement Family Referrals Initiated None needed Whiteboard Updated in Patient Room with Yes name and ext. # of Equipment Operat0R Review Status In Process Next Review Type Continued Stay Review
--- NOTE | 2020-05-15 17:16 | P.DS_ITS ---
History of Present Illness History of Present Illness Date Patient Seen: 05/15/20 Time Patient Seen: 17:16 Chief complaint: SOB PAIN LEFT ARM Narrative: As per LOR Toscano: Ms. Cindy Turpin is a 69-year-old female a past medical history significant for stage III breast cancer status post mastectomy reconstruction c hemotherapy and hypertension who presents to the ER with chest pain. Patient reports she onset of chest pain described as substernal at 10:30 a.m. while paining [place] ornaments and lasted for approximately 3 hours. The pain started rest, was nonpleuritic and radiated to her upper back and left arm. She reports she has had previous left arm pain which was nonspecific and transient and thought nothing of it. She describes associated lightheadedness and dizziness with nausea and no vomiting. She describes shakiness and felt it may been related to nerves. The patient has had no recent cold or flu symptoms, denies fevers or chills and has had no known COVID-19 exposures. Denies headach e or visual changes, nasal congestion or sore throat. She has chest pain as noted above and denies palpitations. She has had mild shortness of breath during the episode feel in difficulty taking a full deep breath. She denies coughing or wheezing. She denies epigastric or abdominal pain and has had nausea without vomiting. She denies urinary symptoms and has nocturia perhaps 1 time per night. She denies diarrhea or constipation. Upon arrival to the ER the patient has a temperature 97.4?, heart rate of 104, blood pressure 176/101, respirations 16 saturating 97% on room air. Chest x-ray is obtained which finds no acute cardiopulmonary processes. Twelve lead EKG finds a sinus rhythm at a rate of 99 with PACs, no blocks, no evidence of ischemic ST or T-wave changes, inferior Q-waves in lead 2 lead 3 and AVF, minimal voltage for LVH, no EKG is available for comparison. On laboratory analysis she has a white count 7.0 without shift, hemoglobin 12.8, hematocrit of 39.1 and platelets 229. She has a PT of 10.7, INR of a 0.9 and a PTT of 30. She has a sodium 135, potassium of 4.4. Her BUN is 27 and creatinine 0.99. Her nonfasting glucose is 141. Her liver functions are all within normal limits. She has D-dimer that is less than 200, total CK is 69 and a troponin that is less than 0.012 x 2, proBNP is 109. Urinalysis is not infective and COVID screening is negative. The patient is admitted to the hospitalist service for chest pain rule out ACS. Discharge Providers Provider Date of admission: 05/14/20 19:12 Discharge Date: 05/15/20 Consults: 05/14/20 19:46 Consult to Discharge Planning Routine Comment: Discharge provider: Justin Rene DO Summary Hospital Course Discharge Diagnosis: 1. Acute chest pain, rule out ACS, present on admission, resolved 2. Hypertension, active 3. History of breast cancer, stable 4. elevated ASCVD risk score. Hospital Course: This is a 69-year-old female patient with a past medical history significant breast cancer and chemotherapy with no personal cardiac history put strong family history of cardiovascular disease who presented with chest pain substernal, onset at rest and radiating to the left shoulder and back lasting for 3 hours. She was an intermediate risk score on admission and underwent stress testing which was deemed low risk. Echocardiogram showed evidence of diastolic dysfunction due to hypertension but she had no evidence of volume overload. She was markedly hypertensive but responded well to diuretics. She was started on a statin given her ASCVD risk of 14%. Discharged ultimately on HCTZ and lisinopril. Patient needs to establish care with a new primary care provider, referral was made. Exam Vital Signs (past 8 hours): - 05/15/20 10:47 05/15/20 11:15 05/15/20 14:51 Temperature Pulse Rate 70 70 Respiratory Rate Blood Pressure 207/108 H 207/108 H 196/97 H Pulse Oximetry 05/15/20 16:00 05/15/20 17:12 Temperature 97.8 F Pulse Rate 77 Respiratory Rate 17 Blood Pressure 128/75 128/65 Pulse Oximetry 96 Oxygen Delivery Method Room Air Oxygen Flow Rate 0 Narrative Exam Narrative: GENERAL APPEARANCE: well developed, overweight female recently conversant, in no acute distress. HEENT: Normocephalic, PERRLA, conjunctiva clear, EOMs intact without nystagmus, no sinus tenderness to percussion, no rhinorrhea, mucous membranes are dry and pink. NECK/THYROID: neck supple, no JVD, no carotid bruit, no thyromegaly, trachea midline. LYMPH NODES: no cervical or supraclavicular lymphadenopathy. SKIN: [place], warm and dry, no visible lesions, rashes, ulcerations or petechiae. HEART: regular rate and rhythm, S1-S2, 1/6 systolic murmur upper right sternal border, no rubs or gallops, brisk capillary refill, no edema LUNGS: clear to auscultation bilaterally, no coarseness crackles or wheezing, no cough present CHEST: Symmetrical movement, no accessory muscle use, good tidal volume, no pain on AP and lateral compression. ABDOMEN: Soft, no distention, no epigastric or abdominal tenderness, no guarding or peritoneal signs, no organomegaly, no flank or suprapubic tenderness, active bowel tones. BACK: Normal curvature, nontender to palpation, no CVA tenderness on percussion, no back pain with straight leg raise EXTREMITIES: moves all extremities, strength is 5/5 and symmetrical, no defor mities or joint effusions. NEUROLOGIC: AAO x4, no focal neurologic deficits, cranial nerves II-XII grossly intact, sensation intact to light touch, hearing grossly normal to speech. PSYCH: Good judgment, good insight, linear thought process, cooperative, appropriate with stable behavior Objective Labs Result Diagrams: 05/15/20 06:55 05/15/20 06:55 Labs: Laboratory Results - last 24 hr 05/14/20 05/14/20 05/14/20 15:56 17:23 17:55 WBC RBC Hgb Hct MCV MCH MCHC RDW Plt Count Neut % (Auto) Lymph % (Auto) [place] % (Auto) Eos % (Auto) Baso % (Auto) Neut # (Auto) Lymph # (Auto) [place] # (Auto) Eos # (Auto) Baso # (Auto) Sodium Potassium Chloride Carbon Dioxide BUN Creatinine Estimated GFR BUN/Creatinine Ratio Glucose Calcium Magnesium Total Creatine Kinase CK-MB (CK-2) CK-MB (CK-2) Rel Index Troponin I NT-Pro-B Natriuret Pep 109 Triglycerides Cholesterol LDL Cholesterol, Calc HDL Cholesterol Urine RBC None seen Urine WBC None seen Urine Bacteria None seen Ur Culture Indicated? Cult not indicated Micro UA Comment Microscopic normal COVID-19 PCR Negative 05/14/20 05/15/20 05/15/20 18:33 06:55 06:55 WBC 5.6 RBC 4.14 Hgb 12.5 Hct 37.5 MCV 90.5 MCH 30.1 MCHC 33.2 RDW 14.2 Plt Count 238 Neut % (Auto) 49.0 L D Lymph % (Auto) 41.1 H [place] % (Auto) 6.9 Eos % (Auto) 2.3 Baso % (Auto) 0.7 Neut # (Auto) 2800 Lymph # (Auto) 2300 [place] # (Auto) 400 Eos # (Auto) 100 Baso # (Auto) 0 Sodium 136 L Potassium 4.3 Chloride 107 Carbon Dioxide 25 BUN 22 H Creatinine 0.84 Estimated GFR > 60.0 BUN/Creatinine Ratio 26.2 H Glucose 103 Calcium 8.8 Magnesium 1.9 Total Creatine Kinase 69 CK-MB (CK-2) TNP CK-MB (CK-2) Rel Index TNP Troponin I < 0.012 < 0.012 NT-Pro-B Natriuret Pep Triglycerides 213 H Cholesterol 189 LDL Cholesterol, Calc 102 H HDL Cholesterol 44 Urine RBC Urine WBC Urine Bacteria Ur Culture Indicated? Micro UA Comment COVID-19 PCR PFSH Medical History (Updated 05/14/20 @ 21:34 by LOR Toscano) History of chemotherapy Stage III breast cancer in female Surgical History (Updated 05/14/20 @ 21:34 by LOR Toscano) History of appendectomy History of hysterectomy History of lumbosacral spine surgery History of mastectomy History of tonsillectomy History of vascular access device Family History (Updated 05/14/20 @ 21:36 by LOR Toscano) Father Congestive heart failure Mother Cancer Brother Myocardial infarction Social History household members: spouse Smoking Status: Never smoker alcohol intake: current Discharge Plan Discharge Plan Patient Disposition: Home Provider Discharge Comment: You were admitted to the hospital with chest pain and high blood pressure. Your stress test was deemed low risk for any heart disease. Your blood pressure improved with a couple of medications which you will be discharged on. Please seek care with a new PCP, a referral for a provider in the family medicine clinics here is provided. You were also prescribed a statin to lower your risk of a heart attack or stroke, currently at a 14.2% risk in the next 10 years. Discharge orders & Medications Prescriptions: New atorvastatin 20 mg tablet 20 mg PO BEDTIME 30 Days Qty: 30 RF: 0 hydrochlorothiazide 25 mg tablet 25 mg PO DAILY 30 Days Qty: 30 RF: 0 lisinopril 20 mg tablet 20 mg PO DAILY 30 Days Qty: 30 RF: 0 Follow up/Referrals: Chema Mahajan DO [Physician] - 2 Weeks (New patient that needs PCP, admitted with chest pain, HTN) Diet/Activity/Treatments Diet: Diet as Tolerated and Low-sodium Activity: As tolerated Discharge Data Attending Provider: Justin Rene VTE Deep Vein Thrombosis/Pulmonary Embolism Present on Admission: No
--- NOTE | 2020-05-15 17:33 | DI.NM.S_ITS ---
DATE OF SERVICE: PROCEDURE: Exercise perfusion study. DATE OF STUDY: 05/15/2020. INDICATIONS: Chest pain with underlying hypertension. RADIOPHARMACEUTICAL: 26.6 millicurie technetium-99m Myoview IV was injected at stress and 10.8 millicurie technetium-99m Myoview IV was injected at rest. CARDIAC STRESS: The patient underwent exercise perfusion study under the supervision of an attending staff using standard Min protocol. She walked on Min protocol for 6 minutes 20 seconds and achieved 89 percent of target heart rate. Baseline blood pressure 160/100. Peak blood pressure reported to be 170/100. No chest pain. Baseline rhythm was sinus with some repolarization changes. During exercise, no convincing ischemic changes. The patient has some isolated PVCs. However, in recovery, had 33 beats run of ventricular bigeminy without any ventricular tachycardia. No significant sustained ventricular or supraventricular arrhythmias seen other than a transient episode of ventricular bigeminy. RAW DATA: There is increased subdiaphragmatic activity. The patient's weight is 190 pounds. GATED STUDY: Resting LV ejection fraction is 70 percent and stress LV ejection fraction 78 percent without any obvious wall motion abnormalities. Resting end- diastolic volume 107 mL. TID ratio 0.70 which is within normal limits. Lung/heart ratio 0.24, which is within normal limits. MYOCARDIAL PERFUSION SCAN: Stress supine and resting supine images reveal small size, mildly decreased perfusion of basal inferior wall extending into the basal inferior lateral wall which got completely resolved during prone images suggestive of diaphragmatic tissue attenuation artifact. I do not see any convincing ischemia or infarction pattern during stress prone images. CONCLUSION: I will call this study likely a normal myocardial perfusion study with evidence of diaphragmatic tissue attenuation artifact which got resolved during prone images. Fair exercise tolerance. Functional aerobic impairment - 11%. Preserved LV function. The patient has some isolated PVCs and brief run of ventricular bigeminies in recovery as well. No ventricular tachycardia. Overall this is a low-risk myocardial perfusion study. Baseline hypertensive. Cindy Turpin EVANS/jamilah/ana maría doc#: [id number]/job#: [id number] dd: 05/15/2020 16:36:00 dt: 05/15/2020 17:26:00 DICTATING MD/COPIES TO: Chris Rodriguez MD COPIES MNE: JENNIFER;
--- NOTE | 2020-05-15 19:27 | PC.NURSE ---
Discharge Note Patient A&O, VSS, RA, no complaints of chest pain or shortness of breath. Discharge packet reviewed and given to patient, no questions or concerns. PIV/tele discontinued. Patient's called to arrange pick-up for patient. All belongings packed and given to patient. Patient waiting for at bedside.
== END 2020-05-15 18:45 | disposition home or self-care (01) ==
LOC: ED 17:17 → AC 19:13
PROVIDERS: Emergency Medicine; Nurse Practitioner Adult Health; Admitting Provider Internal Medicine; Emergency Provider Nurse Practitioner Family; Visit Provider Internal Medicine
DX: R07.9 Chest pain, unspecified (principal); R06.02 Shortness of breath; I10 Essential (primary) hypertension; Z85.3 Personal history of malignant neoplasm of breast; Z23 Encounter for immunization; Z11.59 Encounter for screening for other viral diseases
CPT/HCPCS: 36415; 71045; 78452; 80048; 80053; 80061; 81003; 81015; 82550; 83690; 83735; 83880; 84484; 85025; 85379; 85610; 85730; 87635; 90471; 90662; 93005; 93010; 93017; 93306; 94762; 96361; 96372; 96374; 99283; 99284; G0378; A9502; J1644; J1940

== ENCOUNTER → 2020-07-07 13:30 | Outpatient (CLI) | payer MEDICARE, OTHER, SELFPAY ==
[2020-05-18 14:12] VITALS: BMI 29.7
[2020-07-07 15:19] LABS: COVID19 -Nasal RAPID Negative (Negative)
== END ==
PROVIDERS: PCP Registered Nurse; Visit Provider Physician Assistant
DX: Z20.822 Contact with and (suspected) exposure to COVID-19 (principal)
CPT/HCPCS: 87635; C9803

== ENCOUNTER 2020-07-10 07:59 | Day surgery (SDC) | payer MEDICARE, OTHER, SELFPAY ==
[2020-05-18 14:12] VITALS: BMI 29.7
[2020-07-10] MEDS: PROPARACAINE 0.5% OPHTH SOL 2 DROPS EYE-OP (08:19)
[2020-07-10] MEDS: CATARACT EYE COMPOUND (10 DROPS/SYRINGE) 3 DROPS EYE-OP (08:21)
[2020-07-10 08:22] VITALS: BP 142/91; PULSE 81; RESP 16; TEMP 36.4; O2SAT 98; BMI 29.7
--- NOTE | 2020-07-10 08:38 | PM.PREOP ---
Pre-operative Note Interval Note History & Physical reviewed/Exam performed by Physician: Yes Changes to H&P: No
--- NOTE | 2020-07-10 08:38 | PM.OP.1 ---
Operative Date/Time/Diagnoses Pre-op diagnosis: Nuclear cataract right eye Procedure & Clinicians Procedure: Cataract Surgery Same procedure as scheduled: Yes Surgeon: Julio César Pelayo Anesthesia Type: MAC +/- and Sedation Operative Notes Procedure in detail: Patient brought to the operating suite. Tetracaine drops placed in the right eye. Patient was prepped and draped in sterile manner. Wire lid speculum was placed in the eye. Betadine drops were placed on the eye. This was irrigated. Lidocaine jelly was placed on the eye. A paracentesis port was created with a side-port blade. 0.1 mL 1% preservative free lidocaine was injected into the anterior chamber. The anterior chamber was deepened with viscoelastic. 2.6 mm keratome was used to create a temporal clear corneal incision. Cystotome and Utrata forceps were used to create continuous tear capsulorrhexis. Balanced salt solution was used to hydro dissect the nucleus. The phacoemulsification handpiece was inserted and the nucleus was removed using the stop and chop technique. The irrigation aspiration handpiece was inserted and the remaining cortex was removed. Anterior chamber was deepened with viscoelastic. An Winkler ZCB00 intraocular lens with a power of 17.5 was injected into the capsular bag. Irrigation aspiration handpiece was inserted and the remaining viscoelastic was removed. Incision was hydrated with balanced salt solution and found to be leak free with pressure with Weck-Clarissa sponges. 0.1 mL Vigamox injected anterior chamber. 0.3 mL Kenalog 10 mg was injected subconjunctivally. Lid speculum was removed. The patient left the operating room in excellent condition. Complications: none Post-operative Condition: stable Disposition: same day surgery
[2020-07-10] MEDS: TRIAMCINOLONE 50 MG/5 ML VIAL INJ (08:52)
[2020-07-10] MEDS: PHENYLEPHRINE/LIDOCAINE VIAL (OR) 0.2 ML EYE-OP (08:53)
[2020-07-10] MEDS: MOXIFLOXACIN INJ 5 MG/ML VIAL EYE-OP (08:53)
[2020-07-10] MEDS: BALANCED SALT IRRIG SOLN NO.2 500 ML, EPINEPHrine 1 MG IRR (08:53)
[2020-07-10] MEDS: CHONDROIDTIN/SOD HYALURONATE 1.05 ML SYRINGE INTRAOCULA (08:53)
[2020-07-10] MEDS: LIDOCAINE JELLY 2% 5 ML 1 APPLIC TOP (08:54)
[2020-07-10] MEDS: TETRACAINE 0.5% OPHTH DROPS 4 ML 2 DROPS EYE-OP (08:54)
[2020-07-10 09:08] VITALS: BP 142/91; PULSE 81; RESP 16; TEMP 36.4; O2SAT 98
== END 2020-07-10 09:48 | disposition home or self-care (01) ==
PROVIDERS: PCP Registered Nurse; Referring Provider Ophthalmology; Visit Provider Ophthalmology
PROC: (CPT 66984; principal; 2020-07-10 09:45)
DX: H25.11 Age-related nuclear cataract, right eye (principal); I10 Essential (primary) hypertension; G43.909 Migraine, unspecified, not intractable, without status migrainosus
CPT/HCPCS: 66984; J0171; J2250; J3301

== ENCOUNTER → 2020-12-24 12:26 | Outpatient (CLI) | payer MEDICARE, OTHER, SELFPAY ==
[2020-05-18 14:12] VITALS: BMI 29.7
--- NOTE | 2020-12-24 12:27 | DI.MG.S_ITS ---
UNILATERAL LEFT DIGITAL SCREENING MAMMOGRAM 3D/2D WITH CAD: 12/24/2020 CLINICAL: Routine screening. Breast cancer. Comparison mammograms: 08/23/2017, 03/19/2016, 03/22/2015 [facility]. There are scattered fibroglandular elements in left breast. Current study was also evaluated with a Computer Aided Detection (CAD) system. No significant masses, calcifications, or other findings are seen in the breast. IMPRESSION: NEGATIVE There is no mammographic evidence of malignancy. A 1 year screening mammogram is recommended. This exam was interpreted at Station ID: [id number]. NOTE: For mammograms, a report in lay terms will be sent to the patient. Approximately 15% of breast malignancies will not be visualized mammographically. In the management of a palpable breast mass, a negative mammogram must not discourage biopsy of a clinically suspicious lesion. Electronically Signed By: Daniel Cooley M.D. slc/:12/24/2020 13:55:00 letter sent: Normal Exam ACR BI-RADS Category 1: Negative 3341F
[2020-12-24 14:25] LABS: Alanine Aminotransferase 23 IU/L (<35); Albumin 4.4 g/dL (3.5-5.0); Albumin Globulin Ratio 1.8 (1.0-2.8); Alkaline Phosphatase 77 U/L (38-126); Aspartate Aminotransferase 29 IU/L (14-36); BUN Creatinine Ratio 29.1 (6-22); Bilirubin Total 0.5 mg/dL (0.2-1.3); Blood Urea Nitrogen 25 mg/dL (7-17); Calcium 9.9 mg/dL (8.4-10.2); Carbon Dioxide 26 mmol/L (22-32); Chloride 105 mmol/L (98-107); Cholesterol 204 mg/dL (140-199); Estimated Glomerular Filt Rate > 60.0 mL/min (>60); Globulin 2.5 g/dL (1.7-4.1); Glucose 105 mg/dL (80-110); HDL Cholesterol 78 mg/dL (40-60); HEMOLYSIS < 15 (0-50); LDL Cholesterol Calculated 95 mg/dL (<100); Potassium 5.6 mmol/L (3.4-5.1); Sodium 138 mmol/L (137-145); Total Protein 6.9 g/dL (6.3-8.2); Triglycerides 154 mg/dL (35-150)
== END ==
PROVIDERS: PCP Registered Nurse; Referring Provider Registered Nurse; Visit Provider Registered Nurse
DX: Z12.31 Encounter for screening mammogram for malignant neoplasm of breast (principal); Z85.3 Personal history of malignant neoplasm of breast; Z78.0 Asymptomatic menopausal state; E78.5 Hyperlipidemia, unspecified; I10 Essential (primary) hypertension; Z90.722 Acquired absence of ovaries, bilateral
CPT/HCPCS: 36415; 77063; 77067; 77080; 80053; 80061

== ENCOUNTER → 2020-12-28 10:49 | Outpatient (CLI) | payer MEDICARE, OTHER, SELFPAY ==
[2020-05-18 14:12] VITALS: BMI 29.7
[2020-12-28 12:59] LABS: HEMOLYSIS < 15 (0-50)
== END ==
PROVIDERS: PCP Registered Nurse; Referring Provider Registered Nurse; Visit Provider Registered Nurse
DX: E87.5 Hyperkalemia (principal)
CPT/HCPCS: 36415; 84132

== ENCOUNTER → 2021-12-16 12:19 | Outpatient (CLI) | payer MEDICARE, OTHER, SELFPAY ==
[2021-08-19 13:51] VITALS: BMI 29.7
--- NOTE | 2021-12-16 12:20 | DI.RAD.S_ITS ---
PROCEDURE: XR CERVICAL SPINE 2V OR 3V INDICATIONS: neck and back pain TECHNIQUE: 3 view(s) of the cervical spine were acquired. COMPARISON: None. FINDINGS: Bones: No fractures or dislocations to the C7-T1 level. There is straightening of normal cervical lordosis. Loss of disc height, degenerative endplate changes and bilateral facet hypertrophic changes are noted throughout cervical spine. The lateral masses of C1 appear intact on the odontoid view. No suspicious bony lesions. Soft tissues: No prevertebral soft tissue swelling. IMPRESSION: Degenerative disc disease throughout cervical spine. No acute fracture or dislocation. Dictated by: uT Guidry M.D. on 12/16/2021 at 14:58 Approved by: Tu Guidry M.D. on 12/16/2021 at 14:59
--- NOTE | 2021-12-16 12:20 | DI.RAD.S_ITS ---
PROCEDURE: XR THORACIC SPINE 3V INDICATIONS: NECK AND BACK PAIN TECHNIQUE: 3 views of the thoracic spine were acquired. COMPARISON: None. FINDINGS: Bones: Mild levoscoliosis at thoracolumbar junction is seen centered at T11-12 level. No fractures or dislocations. Mild degenerative endplate changes are seen in mid to lower thoracic spine . No suspicious bony lesions. 12 pairs of ribs are noted, and appear intact where visualized. Soft tissues: No paravertebral stripe thickening. IMPRESSION: Mild degenerative disc disease in mid to lower thoracic spine. No acute compression fracture or spondylolisthesis. Mild scoliosis as above. Dictated by: Tu Guidry M.D. on 12/16/2021 at 15:00 Approved by: Tu Guidry M.D. on 12/16/2021 at 15:01
== END ==
PROVIDERS: PCP Pediatrics; Referring Provider Pediatrics; Visit Provider Pediatrics
DX: G89.29 Other chronic pain (principal); M54.9 Dorsalgia, unspecified; M51.34 Other intervertebral disc degeneration, thoracic region; M41.84 Other forms of scoliosis, thoracic region; M50.30 Other cervical disc degeneration, unspecified cervical region
CPT/HCPCS: 72040; 72072

== ENCOUNTER → 2023-01-28 09:05 | Outpatient (CLI) | payer MEDICARE, OTHER, SELFPAY ==
[2021-08-19 13:51] VITALS: BMI 29.7
[2023-01-28 10:05] LABS: Appearance Urine UA CLEAR; Bilirubin Urine UA NEGATIVE (NEGATIVE); Color Urine UA YELLOW; Glucose Urine UA NEGATIVE (Negative); Ketones Urine UA NEGATIVE (NEGATIVE); Leukocyte Esterase Urine UA TRACE (NEGATIVE); Nitrite Urine UA NEGATIVE (Negative); Occult Blood Urine UA TRACE-INTACT (Negative); Protein Urine UA NEGATIVE (Negative); Urobilinogen Urine UA 0.2 E.U./dL (0.2)
[2023-01-28 10:30] LABS: Add Manual Diff / Slide Review NO; Basophils Absolute Auto 0 /uL (0-100); Basophils Percent Auto 0.6 % (0-2); Eosinophils Absolute Auto 100 /uL (0-450); Eosinophils Percent Auto 1.8 % (2-4); Hematocrit 38.4 % (36-46); Lymphocytes Absolute Auto 4000 /uL (1100-4500); Lymphocytes Percent Auto 54.9 % (25-40); Mean Corpuscular HGB Conc 33.8 % (30-36); Mean Corpuscular Hemoglobin 30.4 PG (26-34); Mean Corpuscular Volume 90.1 fL (80-100); Monocytes Absolute Auto 400 /uL (0-900); Monocytes Percent Auto 5.4 % (3-14); Neutrophils Absolute Auto 2700 /uL (1500-7000); Neutrophils Percent Auto 37.3 % (50-75); Platelet Count 249 X10^3/uL (150-400); Red Blood Cell Count 4.26 X10^6/uL (4.0-5.2); Red Cell Distribution Width 14.4 % (11.6-14.8); White Blood Cell Count 7.3 X10^3/uL (4.5-11.0)
[2023-01-28 11:05] LABS: Alanine Aminotransferase 24 IU/L (<35); Albumin 4.1 g/dL (3.5-5.0); Albumin Globulin Ratio 1.6 (1.0-2.8); Alkaline Phosphatase 62 U/L (38-126); Aspartate Aminotransferase 26 IU/L (14-36); BUN Creatinine Ratio 28.6 (6-22); Bilirubin Total 0.6 mg/dL (0.2-1.3); Blood Urea Nitrogen 22 mg/dL (7-17); Calcium 9.2 mg/dL (8.4-10.2); Carbon Dioxide 28 mmol/L (22-32); Chloride 104 mmol/L (98-107); Cholesterol 225 mg/dL (140-199); Estimated Glomerular Filt Rate > 60 mL/min (>60); Globulin 2.6 g/dL (1.7-4.1); Glucose 106 mg/dL (80-110); HDL Cholesterol 55 mg/dL (40-60); HEMOLYSIS < 15 (0-50); LDL Cholesterol Calculated 128 mg/dL (<100); Potassium 4.6 mmol/L (3.4-5.1); Sodium 138 mmol/L (137-145); Total Protein 6.7 g/dL (6.3-8.2); Triglycerides 211 mg/dL (35-150)
[2023-01-28 11:37] LABS: TSH w/ Reflex to FT4 0.02 uIU/mL (0.47-4.68)
[2023-01-28 11:39] LABS: Bacteria Urine None Seen; Culture Indicated Urine Specimen Cultured; Mucus Urine 1+ (Negative); RBC Urine None Seen (0-5/HPF); Squamous Epithelial Cell Urine None Seen (0-5/HPF); WBC Urine 1-5/HPF (0-5/HPF)
[2023-01-28 12:06] LABS: Free T4, Direct Thyroxine 0.99 ng/dL (0.78-2.19)
[2023-01-29 16:19] LABS: Hep C Virus Ab w/Reflex Quant NEGATIVE s/c (NEGATIVE)
== END ==
PROVIDERS: PCP Pediatrics; Referring Provider Pediatrics; Visit Provider Pediatrics
DX: E78.5 Hyperlipidemia, unspecified (principal); E87.5 Hyperkalemia; I10 Essential (primary) hypertension; R30.0 Dysuria; Z78.0 Asymptomatic menopausal state
CPT/HCPCS: 36415; 80053; 80061; 81001; 84439; 84443; 85025; 86803; 87077; 87086; 87186

== ENCOUNTER → 2023-01-29 07:26 | Outpatient (CLI) | payer MEDICARE, OTHER, SELFPAY ==
[2021-08-19 13:51] VITALS: BMI 29.7
[2023-01-31 03:05] LABS: Free T3, Triiodothyronine Free 4.14 pg/mL (2.77-5.27)
== END ==
PROVIDERS: PCP Pediatrics; Visit Provider Pediatrics
DX: R79.89 Other specified abnormal findings of blood chemistry (principal)
CPT/HCPCS: 84481

== ENCOUNTER → 2023-02-05 12:08 | Outpatient (CLI) | payer MEDICARE, OTHER, SELFPAY ==
[2021-08-19 13:51] VITALS: BMI 29.7
--- NOTE | 2023-02-05 | DI.MG.S_ITS ---
UNILATERAL LEFT DIGITAL SCREENING MAMMOGRAM 3D/2D WITH CAD POST MASTECTOMY: 02/05/2023 CLINICAL: Routine screening. Personal history of right breast cancer. Family history of breast cancer. Comparison is made to exams dated: 12/24/2020 mammogram - [facility], 09/02/2017 mammogram, 08/24/2017 mammogram, 03/19/2016 mammogram, and 03/22/2015 mammogram - [facility]. There are scattered areas of fibroglandular density in the left breast (category b / 25%-50% glandular tissue). Current study was also evaluated with a Computer Aided Detection (CAD) system. There are benign calcifications in the left breast. No significant masses, calcifications, or other findings are seen in the breast. There has been no significant interval change. IMPRESSION: BENIGN There is no mammographic evidence of malignancy. A 1 year screening mammogram is recommended. This exam was interpreted at Station ID: [id number]. NOTE: For mammograms, a report in lay terms will be sent to the patient. Approximately 15% of breast malignancies will not be visualized mammographically. In the management of a palpable breast mass, a negative mammogram must not discourage biopsy of a clinically suspicious lesion. Electronically Signed By: Kd gutierrez/adele:02/15/2023 14:26:16 letter sent: Normal Exam ACR BI-RADS Category 2: Benign Finding(s) 3342F
--- NOTE | 2023-02-05 12:09 | DI.RAD.S_ITS ---
Bone Density Report Name: JAMES ZAMORA Age: 72 Sex: Female Ethnicity: White Date of : 1950 Indication: postmenopausal; screening for osteoporosis; Referring Provider: DARYL KEMP Study: Bone densitometry was performed. Exam Date: February 05, 2023 Accession number: [id number] Bone Density: Region BMD T-score Z-score Classification AP Spine(L1-L4) 1.435 3.5 5.9 Normal Femoral Neck (Left) 0.931 0.7 2.8 Normal Total Hip (Left) 1.088 1.2 3.0 Normal Femoral Neck (Right) 0.885 0.3 2.4 Normal Total Hip (Right) 1.092 1.2 3.0 Normal Total Hip Mean 1.090 1.2 3.0 Normal World Health Organization criteria for BMD impression classify patients as: Normal (T-score at or above -1.0), Osteopenia (T-score between -1.0 and -2.5), or Osteoporosis (T-score at or below -2.5). 10-year Fracture Risk: FRAX not reported because: All T-scores for Spine Total, Hip Total, Femoral Neck at or above -1.0 Previous Exams: -- Region Exam Age BMD T-score BMD Change BMD Change Date g/cm2 vs Baseline vs Previous -- AP Spine (L1-L4) 02/05/2023 72 1.435 3.5 -0.045 (-3.0%)# -0.045 (-3.0%)# 12/24/2020 70 1.480 3.9 Total Hip(Left) 02/05/2023 72 1.088 1.2 -0.055 (-4.8%)# -0.055 (-4.8%)# 12/24/2020 70 1.143 1.7 Total Hip(Right) 02/05/2023 72 1.092 1.2 -0.034 (-3.0%)# -0.034 (-3.0%)# 12/24/2020 70 1.126 1.5 -- *Denotes significance at 95% confidence level, LSC for AP Spine = 0.022 g/cm2, LSC for Total Hip = 0.027 g/cm2 # Denotes dissimilar scan types or analysis methods Impression: The patient has normal bone mass. No significant bone loss was observed. Discussion: LOW RISK OF FRACTURE; BONE DENSITY IS WELL ABOVE THE MINIMUM DESIRABLE LEVEL AND ABOVE AVERAGE FOR AGE AND SEX AT ALL SKELETAL SITES TESTED. This person's bone density is above expected limits for age and sex. This is rarely clinically significant, but should be pursued if there are significant musculoskeletal complaints. The patient should follow a healthful lifestyle (good nutrition with adequate calcium and vitamin D, and appropriate weight-bearing exercise). Follow-Up: Consider repeating this study in 5 years or sooner if there is some new clinical indication. Reported by: ANJELICA MENDEZ M.D. on 02/05/2023 12:25:00 PM.
== END ==
PROVIDERS: PCP Pediatrics; Referring Provider Pediatrics; Visit Provider Pediatrics
DX: Z78.0 Asymptomatic menopausal state (principal); Z12.31 Encounter for screening mammogram for malignant neoplasm of breast; Z13.820 Encounter for screening for osteoporosis; Z80.3 Family history of malignant neoplasm of breast; Z85.3 Personal history of malignant neoplasm of breast; Z92.23 Personal history of estrogen therapy
CPT/HCPCS: 77063; 77067; 77080

== ENCOUNTER → 2023-04-10 07:12 | Day surgery (SDC) | payer MEDICARE, OTHER, SELFPAY ==
[2021-08-19 13:51] VITALS: BMI 29.7
[2023-04-10 07:36] VITALS: BP 179/83; PULSE 74; RESP 16; TEMP 36.3; O2SAT 98; BMI 29.2
[2023-04-10] MEDS: LACTATED RINGERS 1,000 ML 42 ML IV (07:51)
--- NOTE | 2023-04-10 08:53 | PM.HP.1 ---
History of Present Illness History of Present Illness Date Patient Seen: 04/10/23 Time Patient Seen: 08:53 Chief complaint: Screening Colonoscopy Narrative: 72-year-old woman here for screening colonoscopy. Last colonoscopy 2000 05 normal. No family history of intestinal malignancy. No abdominal concerns today including pain blood per rectum unintentional weight loss. [facility] Medical History Abnormal TSH Medicare annual wellness visit, subsequent Cervicalgia Serum potassium elevated History of chemotherapy Stage III breast cancer in female Surgical History History of appendectomy History of lumbosacral spine surgery History of vascular access device History of hysterectomy History of tonsillectomy History of mastectomy Family History Father Congestive heart failure Mother Cancer Brother Myocardial infarction Social History household members: spouse Smoking Status: Never smoker alcohol intake: current Meds Home Medications and Allergies Home Medications Medication Instructions Recorded Confirmed Type losartan 25 mg tablet 25 mg PO DAILY hypertension #90 02/12/23 04/10/23 Rx tabs Allergies Allergy/AdvReac Type Severity Reaction Status Date / Time lisinopril Allergy Mild cough Verified 04/10/23 07:34 Exam Vital Signs (past 8 hours): - 04/10/23 07:36 Temperature 97.4 F L Pulse Rate 74 Respiratory Rate 16 Blood Pressure 179/83 H Pulse Oximetry 98 Oxygen Delivery Method Room Air Oxygen Delivery Method Room Air Narrative Exam Narrative: General adult woman alert oriented no acute distress Abdomen soft nontender nondistended Assessment & Plan Assessment & Plan narrative: The patient requires colorectal screening and colonoscopy is recommended. Technical details were discussed. Risks, benefits, alternatives explained. Risks including but not limited to myocardial infarction, aspiration, bleeding, pain, missed lesion, incomplete examination, need for further radiographic studies, colonic perforation, and need for major abdominal surgery were discussed. All questions were answered to their satisfaction, and they are in agreement with this plan. Myself and the anesthesiologist discussed her blood pressure is poorly controlled and significantly elevated today initial systolic was over 200 now down to 179/83. We discussed possible anesthetic risks including stroke heart heart attack , her preference is to proceed given the alternative of reschedule after blood pressure is better controlled.
--- NOTE | 2023-04-10 09:15 | SUR.PREOP ---
Patient with consistently elevated blood pressure; asymptomatic. Physician notified. Anesthesia notified. Procedure cancelled and instructed patient to follow up with PMD. Ambulatory at discharge with family.
== END | disposition home or self-care (01) ==
PROVIDERS: PCP Pediatrics; Referring Provider Surgery; Visit Provider Surgery
DX: Z12.11 Encounter for screening for malignant neoplasm of colon (principal); I10 Essential (primary) hypertension; Z53.09 Procedure and treatment not carried out because of other contraindication
CPT/HCPCS: G0121; J2704

== ENCOUNTER → 2023-04-27 16:32 | Outpatient (CLI) | payer MEDICARE, OTHER, SELFPAY ==
[2021-08-19 13:51] VITALS: BMI 29.7
--- NOTE | 2023-04-27 16:34 | DI.US.S_ITS ---
PROCEDURE: US THYROID INDICATIONS: possible new diagnosis hyperthyroidism TECHNIQUE: Real-time scanning was performed of the thyroid gland, with image documentation. COMPARISON: None. FINDINGS: Right: Thyroid lobe measures 3.8 x 1.4 x 1.3 cm, and is homogeneous in echotexture. Left: Thyroid lobe measures 3.6 x 1.4 x 1.3 cm, and is homogenous in echotexture. Isthmus: 2 mm thick. No significant thyroid nodules. Blood flow is felt to be within normal limits. IMPRESSION: Thyroid size and vascularity is felt to be within normal limits. No significant thyroid nodules. Dictated by: Daniel Cooley M.D. on 04/27/2023 at 20:50 Approved by: Daniel Cooley M.D. on 04/27/2023 at 20:52
== END ==
PROVIDERS: PCP Family Medicine; Referring Provider Family Medicine; Visit Provider Family Medicine
DX: R79.89 Other specified abnormal findings of blood chemistry (principal)
CPT/HCPCS: 76536

== ENCOUNTER → 2023-05-06 10:29 | Outpatient (CLI) | payer MEDICARE, OTHER, SELFPAY ==
[2021-08-19 13:51] VITALS: BMI 29.7
[2023-05-06 11:57] LABS: Hemoglobin A1C% w Est Avg Glu 6.2 % (4.0-6.0)
[2023-05-06 12:33] LABS: TSH w/ Reflex to FT4 0.29 uIU/mL (0.47-4.68)
[2023-05-06 13:04] LABS: Free T4, Direct Thyroxine 1.08 ng/dL (0.78-2.19)
[2023-05-08 00:17] LABS: Anti Thyroglobulin Antibody <1.0 IU/mL (0.0-0.9); Thyroid Peroxidase Antibodies 13 IU/mL (0-34)
== END ==
PROVIDERS: PCP Family Medicine; Referring Provider Family Medicine; Visit Provider Family Medicine
DX: R79.89 Other specified abnormal findings of blood chemistry (principal); E78.00 Pure hypercholesterolemia, unspecified; E78.5 Hyperlipidemia, unspecified; I10 Essential (primary) hypertension; E66.9 Obesity, unspecified
CPT/HCPCS: 36415; 83036; 84439; 84443; 86376; 86800

== ENCOUNTER → 2023-05-15 12:32 | Outpatient (CLI) | payer MEDICARE, OTHER, SELFPAY ==
[2021-08-19 13:51] VITALS: BMI 29.7
--- NOTE | 2023-05-15 12:33 | DI.ECHO.S_ITS ---
Version: 1 Study ID: [id number] [place] [address] Name: JAMES ZAOMRA Study Date: 05/15/2023, 12: 49 PM : 1950 BP: 160 / 88 mmHg Gender: Female Height: 67 in Age: 72 Years Weight: 187 lb BSA: 1.97 mA? Referring: KATHI JUSTICE Clinician: Nickie Renteria Reason For Study: Aortic, Ascending Aneurysm History: Summary Statements Normal sinus rhythm. Normal LV size and wall thickness. Normal wall motion and LV systolic function. Ejection fraction is 60-65%. Stage I diastolic dysfunction. Moderate left atrial enlargement. Otherwise normal chamber sizes. Mildly dilated aortic root measuring 4.4 cm in diameter with mild associated aortic regurgitation. Otherwise there are no significant valvular abnormalities. Compared to prior study ascending aorta diameter mihir from 4.1 cm to 4.5 cm. Procedure: A two-dimensional transthoracic echocardiogram with color flow and Doppler was performed. The study quality was technically adequate. Comparison is made with the echocardiogram of 05-15-20. The patient was in sinus rhythm with heart rates between 64-68 bpm during the exam. Left Ventricle: The left ventricle is normal in size and wall thickness. The ejection fraction is estimated to be 60-65%. Diastolic parameters suggest probable normal left ventricular diastolic function and normal filling pressures. Right Ventricle: The right ventricle grossly appears normal in size with probable normal systolic function. Atria: The left atrium is moderately dilated. Right atrial size is normal. The interatrial septum grossly appears intact with no obvious evidence for an atrial septal defect. Mitral Valve: The mitral valve leaflets appear mildly thickened, but open well. There is mild to moderate mitral regurgitation. Aortic Valve: The aortic valve is trileaflet. The aortic valve opens well. There is mild to moderate aortic regurgitation. Tricuspid Valve: The tricuspid valve leaflets are thin and pliable. The tricuspid valve leaflets are thickened and/or calcified, but open well. There is a trace or physiologic amount of tricuspid regurgitation. The right ventricular systolic pressure is estimated to be at least 31 mmHg based on an estimated right atrial pressure of 3 mm Hg. Pulmonic Valve: The pulmonic valve is not well seen, but is grossly normal. There is a trace or physiologic amount of pulmonic regurgitation. Great Vessels: Aortic root measures 4.4 cm. The ascending aorta is moderately enlarged. Ascending aorta measures 4.5 cm. Aortic arch measures 3.7 cm. The aortic arch is mildly enlarged. The IVC is of normal diameter and collapses greater than 50% with a sniff. This suggests a low right atrial pressure of 3 mm Hg. Pericardium/ Pleura: 2D and M-Mode Measurements and Calculations LVIDd: 4.9 cm AoV Openin.78 cm LVIDs: 2.9 cm Ao root diam: 4.4 cm IVSd: 1.04 cm asc Aorta Diam: 4.4 cm LVPWd: 0.92 cm Ao Arch Diam (Prox Trans): 3.7 cm LV triplett. diameter/BSA (cm/m^2): 2.49 LV sys. diameter/BSA (cm/m^2): 1.47 EPSS: 0.94 cm RVD1 (basal): 2.39 cm LA A4 area: 25.5 client service consultant? IVC diam: 1.87 cm LA A2 area: 22.2 client service consultant? RA area: 15.4 client service consultant? LA length (vol): 5.8 cm RA long axis: 5.4 cm LA vol: 82.4 ml RA vol: 37.5 ml LA vol index: 41.9 ml/mA? RA : 19.1 ml/mA? Doppler Measurements and Calculations Ao V2 max: 148.1 cm/sec LVOT Max Daniel: 101.8 cm/sec Ao V2 mean: 107.5 cm/sec LV V1 max P.1 mmHg Ao V2 VTI: 31.6 cm LV V1 VTI: 23.5 cm Ao max P.8 mmHg Ao mean P.1 mmHg sev ratio: 0.74 AI P1/2t: 595.8 msec AI dec slope: 243.4 cm/secA? MV E max daniel: 42.8 cm/sec MV dec time: 0.17 sec MV A max daniel: 88.9 cm/sec MV E/A: 0.48 Med Peak E' Daniel: 3.8 cm/sec Lat Peak E' Daniel: 3.5 cm/sec E/e' average: 11.8 TR max daniel: 264.6 cm/sec PA mean P.42 mmHg TR max P.0 mmHg PA V2 max: 80.1 cm/sec MR PISA: 3.2 client service consultant? Electronically signed by: Key Dao M.D. 05/15/2023, 3: 53 PM
== END ==
PROVIDERS: PCP Family Medicine; Referring Provider Family Medicine; Visit Provider Family Medicine
DX: I08.0 Rheumatic disorders of both mitral and aortic valves (principal); I77.810 Thoracic aortic ectasia
CPT/HCPCS: 93306

== ENCOUNTER → 2024-05-02 17:36 | Outpatient (CLI) | payer MEDICARE, OTHER, SELFPAY ==
[2021-08-19 13:51] VITALS: BMI 29.7
--- NOTE | 2024-05-02 | DI.MG.S_ITS ---
UNILATERAL LEFT DIGITAL SCREENING MAMMOGRAM 3D/2D WITH CAD POST MASTECTOMY: 05/02/2024 CLINICAL: Routine screening. Personal history of right breast cancer. Family history of Breast Cancer. Comparison is made to exams dated: 02/05/2023 mammogram, 12/24/2020 mammogram - [facility], 09/02/2017 mammogram, 08/24/2017 mammogram, and 03/19/2016 mammogram - [facility]. There are scattered areas of fibroglandular density (category b / 25%-50% glandular tissue). Current study was also evaluated with a Computer Aided Detection (CAD) system. No significant masses, calcifications, or other findings are seen in the breast. There has been no significant interval change. IMPRESSION: NEGATIVE There is no mammographic evidence of malignancy. A 1 year screening mammogram is recommended. This exam was interpreted at Station ID: [id number]. NOTE: For mammograms, a report in lay terms will be sent to the patient. Approximately 15% of breast malignancies will not be visualized mammographically. In the management of a palpable breast mass, a negative mammogram must not discourage biopsy of a clinically suspicious lesion. Electronically Signed By: Antonia Rhodes M.D., Ph.D. [email or web address]/[email or web address]:05/04/2024 16:08:49 letter sent: Normal Exam ACR BI-RADS Category 1: Negative
== END ==
LOC: MAMMO 17:36
PROVIDERS: PCP Family Medicine; Referring Provider Family Medicine; Visit Provider Family Medicine
DX: Z12.31 Encounter for screening mammogram for malignant neoplasm of breast (principal); Z85.3 Personal history of malignant neoplasm of breast; Z80.3 Family history of malignant neoplasm of breast
CPT/HCPCS: 77063; 77067

== ENCOUNTER → 2024-10-24 09:16 | Outpatient (CLI) | payer MEDICARE, OTHER, SELFPAY ==
[2021-08-19 13:51] VITALS: BMI 29.7
[2024-10-24 10:02] LABS: Add Manual Diff / Slide Review NO; Basophils Absolute Auto 0 /uL (0-100); Basophils Percent Auto 0.3 % (0-2); Eosinophils Absolute Auto 200 /uL (0-450); Eosinophils Percent Auto 1.7 % (2-4); Hematocrit 40.2 % (36-46); Hemoglobin 13.6 g/dL (12.0-16.0); Lymphocytes Absolute Auto 6800 /uL (1100-4500); Lymphocytes Percent Auto 63.4 % (25-40); Mean Corpuscular HGB Conc 33.8 % (30-36); Mean Corpuscular Hemoglobin 31.1 PG (26-34); Mean Corpuscular Volume 91.9 fL (80-100); Monocytes Absolute Auto 400 /uL (0-900); Neutrophils Absolute Auto 3300 /uL (1500-7000); Neutrophils Percent Auto 30.6 % (50-75); Platelet Count 275 X10^3/uL (150-400); Red Blood Cell Count 4.37 X10^6/uL (4.0-5.2); Red Cell Distribution Width 14.3 % (11.6-14.8); White Blood Cell Count 10.8 X10^3/uL (4.5-11.0)
[2024-10-24 10:12] LABS: Hemoglobin A1C% w Est Avg Glu 5.6 % (4.0-6.0)
[2024-10-24 10:27] LABS: Alanine Aminotransferase 23 IU/L (<35); Albumin 4.4 g/dL (3.5-5.0); Alkaline Phosphatase 68 U/L (38-126); Aspartate Aminotransferase 25 IU/L (14-36); BUN Creatinine Ratio 28.9 (6-22); Bilirubin Total 0.7 mg/dL (0.2-1.3); Blood Urea Nitrogen 28 mg/dL (7-17); Calcium 9.8 mg/dL (8.4-10.2); Carbon Dioxide 25 mmol/L (22-32); Chloride 103 mmol/L (98-107); Cholesterol 228 mg/dL (140-199); Estimated Glomerular Filt Rate > 60 mL/min (>60); Globulin 2.2 g/dL (1.7-4.1); Glucose 106 mg/dL (70-99); HDL Cholesterol 65 mg/dL (40-60); HEMOLYSIS < 15 (0-50); LDL Cholesterol Calculated 131 mg/dL (<100); Potassium 4.4 mmol/L (3.4-5.1); Sodium 137 mmol/L (137-145); Total Protein 6.6 g/dL (6.3-8.2); Triglycerides 161 mg/dL (35-150)
[2024-10-24 10:54] LABS: TSH w/ Reflex to FT4 0.46 uIU/mL (0.47-4.68)
[2024-10-24 11:18] LABS: Free T4, Direct Thyroxine 0.95 ng/dL (0.78-2.19)
[2024-10-24 11:25] LABS: Microalbumin Urine Random 2.1 mg/dL (0-1.6)
[2024-10-26 10:39] LABS: Free T3, Triiodothyronine Free 3.96 pg/mL (2.77-5.27)
== END ==
PROVIDERS: PCP Family Medicine; Referring Provider Family Medicine; Visit Provider Family Medicine
DX: R79.89 Other specified abnormal findings of blood chemistry (principal); I10 Essential (primary) hypertension; E78.00 Pure hypercholesterolemia, unspecified; R73.03 Prediabetes
CPT/HCPCS: 36415; 80053; 80061; 82043; 82570; 83036; 84439; 84443; 84481; 85025

== ENCOUNTER 2025-05-15 13:36 | Emergency (ER) | payer MEDICARE, OTHER, SELFPAY ==
[2021-08-19 13:51] VITALS: BMI 29.7
[2025-05-15] VITALS (11 sets, daily range): BP systolic 107–159; BP diastolic 59–75; PULSE 61–82; RESP 15–23; TEMP 36.5; O2SAT 92–97; BMI 28.0
--- NOTE | 2025-05-15 14:24 | DI.RAD.S_ITS ---
PROCEDURE: XR CHEST 1V INDICATIONS: Chest Pain TECHNIQUE: One view of the chest was acquired. COMPARISON: [facility], CR, XR CHEST 1V, 05/14/2020, 15:30. FINDINGS: Surgical changes and devices: Median sternotomy wires. Right axillary surgical clips. Lungs and pleura: Lungs are clear. No pleural effusions or pneumothorax. Mediastinum: Mediastinal contours appear normal. Heart size is normal. Bones and chest wall: No suspicious bony lesions. Overlying soft tissues appear unremarkable. IMPRESSION: No acute cardiopulmonary abnormality is seen. Approved by: Antonia Rhodes M.D.,Ph.D. on 05/15/2025 at 15:13
--- NOTE | 2025-05-15 15:53 | DI.CT.S_ITS ---
PROCEDURE: CT HEAD/BRAIN WO CON INDICATIONS: dizziness TECHNIQUE: Noncontrast 4.5 mm thick angled axial sections acquired from the foramen magnum to the vertex, with coronal and sagittal reformats. For radiation dose reduction, the following was used: automated exposure control, adjustment of mA and/or kV according to patient size. COMPARISON: None. FINDINGS: Image quality: Diagnostic CSF spaces: Basal cisterns are patent. Lateral ventricles are symmetric. Volume: Vascular calcifications. Periventricular white matter disease is commonly seen with chronic microangiopathy. Volume loss is present. These findings are moderate Brain: No gross loss of graves-white differentiation. No acute hemorrhage. Craniofacial structures: No significant paranasal sinus opacity. IMPRESSION: No acute intracranial pathology. Consider MRI if there is high concern for infarction. Dictated by: Catrachito Valdez M.D. on 05/15/2025 at 16:36 Approved by: Catrachito Valdez M.D. on 05/15/2025 at 16:37
--- NOTE | 2025-05-15 15:54 | DI.CT.S_ITS ---
PROCEDURE: CT ANGIO HEAD AND NECK INDICATIONS: dizziness TECHNIQUE: After the administration of intravenous contrast, 1 mm thick sections acquired from the aortic arch through the [place]. 3-dimensional gldssvt-buoyhuxrh-majanqgefl (MIP) and/or volume rendering reformats were acquired of the central intracranial vasculature and neck separately. For radiation dose reduction, the following was used: automated exposure control, adjustment of mA and/or kV according to patient size. COMPARISON: None. FINDINGS: Image quality: Diagnostic HEAD ANGIOGRAPHY: Anterior circulation: ICAs: Patent petrous and cavernous segments. Supraclinoid segments also appear patent, with mild calcifications. ACAs: Patent MCAs: Mild irregularity seen in the left MCA, likely mild intracranial athero sclerosis, overall patent AComm: No aneurysm Venous sinuses: Not well assessed on this arterial phase study Posterior circulation: Dominance: Left Vertebral arteries: Mild intracranial calcifications Basilar artery: Patent PComms: supply to the left [place]. No aneurysm identified box strapper: Patent NECK ANGIOGRAPHY: Aortic arch and subclavian arteries: Overall patent. Postsurgical changes of the proximal arch and ascending aorta. Moderate fluid is partially seen Mild atherosclerotic calcifications seen at the arch. CCAs: Patent ICA origins (by NASCET criteria): Moderate calcifications at the left origin along with areas of noncalcified plaque. There is approximately 50% narrowing. Mild calcifications without significant narrowing seen on the right. ICAs: Overall patent ECAs: Origins are patent. Vertebral arteries: Overall patent. Mild calcifications are seen. Soft tissues: No lymph nodes enlarged by size criteria. Suspect area of fat necrosis seen in the right upper chest wall Lung apices: Scattered scarring and atelectasis. Bones: No aggressive appearing osseous abnormality. Left rib fractures are seen of varying ages. Sternotomy wires. Degenerative cervical spine changes. IMPRESSION: Mild and moderate areas of atherosclerotic disease in the head and neck arteries as described above. No large vessel occlusion. 50% narrowing is seen at the left ICA origin. Consider MRI if there is high concern for infarction Upper chest postsurgical changes. Ascending aortic and proximal arch partially seen postsurgical changes with moderate degree of surrounding fluid. Consider dedicated surveillance imaging with multiphase CT angiogram of the chest, depending on clinical context and timing of the prior surgery. Any quantitative measurements of stenosis were performed using NASCET criteria. Dictated by: Catrachito Valdez M.D. on 05/15/2025 at 16:37 Approved by: Catrachito Valdez M.D. on 05/15/2025 at 16:47
--- NOTE | 2025-05-15 15:56 | ED.DIZZY ---
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 She said it has been more or less continuous but it has days where it is better in days it is worse. Patient does say that has gotten worse over the last week. Patient does admit to tinnitus in the left ear no nausea and vomiting no chest pain pressure or heaviness no shortness of breath. Related Data Home Medications ?Medication ?Instructions ?Recorded ?Confirmed amlodipine 2.5 mg tablet 2.5 mg PO DAILY 10/07/24 11/02/24 losartan 100 mg tablet 100 mg PO DAILY 10/07/24 11/02/24 Previous Rx's ?Medication ?Instructions ?Recorded rosuvastatin 5 mg tablet 5 mg PO DAILY #30 tabs 11/02/24 hydrochlorothiazide 25 mg tablet 12.5 mg (1/2 x 25 mg) PO DAILY #45 01/17/25 tabs meclizine 25 mg tablet 25 mg PO TID PRN dizziness #14 tabs 05/15/25 Allergies Allergy/AdvReac Type Severity Reaction Status Date / Time lisinopril AdvReac Mild cough Verified 05/15/25 14:01 Review of Systems Review of Systems Narrative: GENERAL: Denies chills, fatigue, malaise, fever, sweats. HEENT: Denies sinus pain, ear pain, sore throat, difficulty swallowing, dizziness. RESPIRATORY: Denies dyspnea, cough, wheezing, hemoptysis, sputum. CARDIOVASCULAR: Denies chest pain, palpitations, orthopnea, edema, GASTROINTESTINAL: Denies nausea, vomiting, abdominal pain, diarrhea, constipation, melena. : Denies dysuria, frequency, incontinence, hematuria, urinary retention. MUSCULOSKELETAL: denies weakness, joint pain, or bony pain SKIN: Denies rash, skin lesions, or other NEUROLOGIC: See HPI PSYCHIATRIC: No concerning psychosocial issues. 12 point review of systems is negative except for those stated above Patient History Medical History (Updated 05/15/25 @ 20:52 by Luis Miguel Luna MD) Abnormal TSH Medicare annual wellness visit, subsequent Cervicalgia Serum potassium elevated History of chemotherapy Stage III breast cancer in female Surgical History History of appendectomy History of lumbosacral spine surgery History of vascular access device History of hysterectomy History of tonsillectomy History of mastectomy Family History Father Congestive heart failure Mother Cancer Brother Myocardial infarction Social History household members: spouse alcohol intake: current alcohol intake frequency: a few times a month Exam Narrative Exam Narrative: GENERAL: [] year old patient appears stated age. Well-developed patient, in mild distress. HEAD: Atraumatic. Normocephalic. EYES: Pupils equal round and reactive. Extraocular motions intact. No scleral icterus. No injection or drainage. ENT: Nose without bleeding, purulent drainage. Throat without erythema, tonsillar hypertrophy or exudate. Airway patent. NECK: Trachea midline. Non tender CARDIOVASCULAR: Regular rate and rhythm without murmurs, gallops, or rubs. RESPIRATORY: Clear to auscultation. Breath sounds equal bilaterally. No wheezes, rales, or rhonchi. GASTROINTESTINAL: Abdomen soft, non-tender, nondistended. EXTREMITIES: No edema or joint tenderness. BACK: Nontender without deformity or crepitance. No flank tenderness. NEURO: AOx3. Cranial nerve exam is remarkable for horizontal nystagmus fast component to the left. Sensory positive appropriate x4 motor 5/5 strength in all 4 extremities cerebellar exam patient was able do leklhl-[id number] bilaterally. Patient with positive Romberg with eyes open. SKIN: No rash or erythema of visible areas Initial Vital Signs Initial Vital Signs: Vital Signs Temperature 97.7 F 05/15/25 14:01 Pulse Rate 61 05/15/25 14:01 Respiratory Rate 19 05/15/25 14:01 Blood Pressure 107/59 L 05/15/25 14:01 Pulse Oximetry 97 05/15/25 14:01 Oxygen Delivery Method Room Air 05/15/25 14:01 Course Orders Ordered: ED Orders 05/15/25 14:24 XR chest 1V Stat EKG-12 Lead Stat 05/15/25 15:45 Comprehensive Metabolic Panel Stat Ethanol (ETOH) Stat Lipase Stat Magnesium Stat NT-proBNP (BNP-Adult 18+) Stat PTT Partial Thromboplastin Satish Stat Prothrombin Time INR Stat Troponin & CK Cardiac Panel Stat 05/15/25 15:53 CT head/brain wo con Stat 05/15/25 15:54 CT angio head and neck Stat EKG-12 Lead Stat 05/15/25 20:21 Complete Blood Count AUTO DIFF Stat Discontinued Medications Aspirin (Aspirin 81 Mg Chew Tab) 324 mg PO NOW ONE Stop: 05/15/25 14:25 Last Admin: 05/15/25 16:45 Dose: Not Given Documented By: BELKIS Meclizine HCl (Meclizine Hcl 12.5 Mg Tablet) 25 mg PO NOW ONE Stop: 05/15/25 18:29 Last Admin: 05/15/25 18:51 Dose: 25 mg Documented By: DAVY Vital Signs Vital signs: Vital Signs - 8 hr 05/15/25 14:01 05/15/25 15:50 05/15/25 15:52 Temperature 97.7 F Pulse Rate 61 61 61 Respiratory Rate 19 23 21 Blood Pressure 107/59 L Pulse Oximetry 97 95 94 Oxygen Delivery Method Room Air 05/15/25 15:52 05/15/25 16:00 05/15/25 16:30 Temperature Pulse Rate 61 62 Respiratory Rate 18 15 Blood Pressure 127/59 L Pulse Oximetry 95 93 Oxygen Delivery Method 05/15/25 17:00 05/15/25 19:18 05/15/25 19:19 Temperature Pulse Rate 63 82 Respiratory Rate 15 Blood Pressure 147/71 H Pulse Oximetry 92 Oxygen Delivery Method 05/15/25 19:19 05/15/25 19:30 05/15/25 19:30 Temperature Pulse Rate 69 62 Respiratory Rate 18 21 Blood Pressure 139/67 Pulse Oximetry 92 93 Oxygen Delivery Method MDM - Dizziness Lab Data 05/15/25 20:21 05/15/25 15:45 Labs: Lab Results 05/15/25 05/15/25 Range/Units 15:45 20:21 WBC 8.6 (4.5-11.0) X10^3/uL RBC 3.88 L (4.0-5.2) X10^6/uL Hgb 11.7 L (12.0-16.0) g/dL Hct 34.7 L (36-46) % MCV 89.5 (80-100) fL MCH 30.1 (26-34) PG MCHC 33.6 (30-36) % RDW 15.8 H (11.6-14.8) % Plt Count 328 (150-400) X10^3/uL Neut % (Auto) 38.1 L (50-75) % Lymph % (Auto) 50.7 H (25-40) % [place] % (Auto) 6.6 (3-14) % Eos % (Auto) 3.9 (2-4) % Baso % (Auto) 0.7 (0-2) % Neut # (Auto) 3300 (5422-2106) /uL Lymph # (Auto) 4400 (8691-6717) /uL [place] # (Auto) 600 (0-900) /uL Eos # (Auto) 300 (0-450) /uL Baso # (Auto) 100 (0-100) /uL PT 11.6 (9.4-12.5) SECONDS INR 1.0 (0.9-1.3) APTT 21 L (25.1-36.5) SECONDS Sodium 137 (137-145) mmol/L Potassium 4.3 (3.4-5.1) mmol/L Chloride 103 (98-107) mmol/L Carbon Dioxide 23 (22-32) mmol/L BUN 26 H (7-17) mg/dL Creatinine 1.32 H (0.52-1.04) mg/dL Estimated GFR 42 L (>60) mL/min BUN/Creatinine Ratio 19.7 (6-22) Glucose 108 H (70-99) mg/dL Calcium 9.5 (8.4-10.2) mg/dL Magnesium 1.7 (1.6-2.3) mg/dL Total Bilirubin 0.4 (0.2-1.3) mg/dL AST 25 (14-36) IU/L ALT 19 (<35) IU/L Alkaline Phosphatase 109 (38-126) U/L Total Creatine Kinase 27 L (30-135) U/L Troponin I < 0.012 (0.01-0.034) ng/mL NT-Pro-B Natriuret Pep 439 (<450) pg/mL Total Protein 7.6 (6.3-8.2) g/dL Albumin 4.6 (3.5-5.0) g/dL Globulin 3.0 (1.7-4.1) g/dL Albumin/Globulin Ratio 1.5 (1.0-2.8) Lipase 71 (23-300) U/L Ethyl Alcohol < 10 (<10) mg/dL MDM Narrative Medical decision making narrative: The patient has CT of the head read by the radiologist as negative patient CTA of the neck read by the radiologist as 50% narrowing of the left internal carotid artery. Patient had chest x-ray read by the read is negative CBC was with normals chemistry was within normal limits troponin was negative. The emergency department patient was given p.o. meclizine with improvement in symptoms the patient will be discharged home differential diagnosis posterior CVA vertigo labyrinthitis intracranial bleed Discharge Plan Departure Patient Disposition: Home Clinical Impression: Vertigo Instructions: DI for Vertigo Prescriptions: New meclizine 25 mg tablet 25 mg PO TID PRN (Reason: dizziness) Qty: 14 0RF No Action hydrochlorothiazide 25 mg tablet 12.5 mg PO DAILY Qty: 45 3RF rosuvastatin 5 mg tablet 5 mg PO DAILY Qty: 30 3RF losartan 100 mg tablet 100 mg PO DAILY amlodipine 2.5 mg tablet 2.5 mg PO DAILY Referrals: Katlyn Olvera DO [Primary Care Provider, Family Practice] - 3-5 days Stand Alone Forms: Patient Portal/API
[2025-05-15 16:11] LABS: INR 1.0 (0.9-1.3); Prothrombin Time 11.6 SECONDS (9.4-12.5)
[2025-05-15 16:14] LABS: PTT Partial Thromboplastin Tim 21 SECONDS (25.1-36.5)
[2025-05-15 16:15] LABS: Alanine Aminotransferase 19 IU/L (<35); Albumin 4.6 g/dL (3.5-5.0); Albumin Globulin Ratio 1.5 (1.0-2.8); Alkaline Phosphatase 109 U/L (38-126); Blood Urea Nitrogen 26 mg/dL (7-17); Calcium 9.5 mg/dL (8.4-10.2); Carbon Dioxide 23 mmol/L (22-32); Chloride 103 mmol/L (98-107); Creatine Kinase 27 U/L (30-135); Estimated Glomerular Filt Rate 42 mL/min (>60); Ethanol (ETOH) < 10 mg/dL (<10); Globulin 3.0 g/dL (1.7-4.1); Glucose 108 mg/dL (70-99); HEMOLYSIS < 15 (0-50); Lipase 71 U/L (23-300); Magnesium 1.7 mg/dL (1.6-2.3); Potassium 4.3 mmol/L (3.4-5.1); Sodium 137 mmol/L (137-145); Total Protein 7.6 g/dL (6.3-8.2)
[2025-05-15 16:26] LABS: NT-proBNP (BNP-Adult 18+) 439 pg/mL (<450); Troponin I < 0.012 ng/mL (0.01-0.034)
[2025-05-15] MEDS: MECLIZINE HCL 12.5 MG TABLET 25 MG PO (18:51)
[2025-05-15 20:28] LABS: Add Manual Diff / Slide Review NO; Hematocrit 34.7 % (36-46); Hemoglobin 11.7 g/dL (12.0-16.0); Lymphocytes Absolute Auto 4400 /uL (1100-4500); Mean Corpuscular HGB Conc 33.6 % (30-36); Mean Corpuscular Hemoglobin 30.1 PG (26-34); Mean Corpuscular Volume 89.5 fL (80-100); Platelet Count 328 X10^3/uL (150-400)
== END 2025-05-15 21:10 | disposition home or self-care (01) ==
PROVIDERS: Emergency Medicine; Emergency Provider Emergency Medicine; PCP Family Medicine
DX: R42 Dizziness and giddiness (principal); I65.22 Occlusion and stenosis of left carotid artery; Z86.79 Personal history of other diseases of the circulatory system; Z98.890 Other specified postprocedural states; Z86.74 Personal history of sudden cardiac arrest
CPT/HCPCS: 70450; 70496; 70498; 71045; 80053; 80320; 82550; 83690; 83735; 83880; 84484; 85025; 85610; 85730; 99283; 99284; Q9967